=== PATIENT | female | born 1950 | race Caucasian/White ===

== ENCOUNTER 2020-03-11 20:28 | Inpatient (IN) | payer MEDICAID ==
[~2020-03-11] VITALS: Ht 154.9 cm; Wt 84.0 kg
[2020-03-11 21:16] LABS: BASOPHILS % (AUTO) 0.2 % (0.0-2.0); EOSINOPHILS % (AUTO) 0 % (1.0-6.0); HEMATOCRIT 37.3 % (36-46); HEMOGLOBIN 12.4 g/dL (12.0-16.0); LYMPHOCYTES # (AUTO) 1.5 K/uL (1.0-4.8); LYMPHOCYTES % (AUTO) 21.1 % (22.0-44.0); MEAN CORPUSCULAR HEMOGLOBIN 30.6 pg (26.0-34.0); MEAN CORPUSCULAR HGB CONC 33.4 G/dL (31.0-37.0); MEAN CORPUSCULAR VOLUME 92 fL (80-100); MONOCYTES # (AUTO) 0.6 K/uL (0.1-1.0); MONOCYTES % (AUTO) 8.5 % (2.0-9.0); NEUTROPHILS # (AUTO) 5.1 K/uL (1.8-7.7); NEUTROPHILS % (AUTO) 70.2 % (40.0-70.0); PLATELET COUNT (AUTO) 183 K/uL (150-450); RED BLOOD CELL COUNT(AUTO) 4.07 MIL/uL (4.00-5.20); RED CELL DISTRIBUTION WIDTH 13.7 % (11.5-14.5)
[2020-03-11 21:45] LABS: CREATININE 1.46 mg/dL (0.60-1.30); POTASSIUM 4.4 mmol/L (3.5-5.1)
[2020-03-11 22:14] LABS: ALBUMIN 3.2 g/dL (3.4-5.0); BILIRUBIN,TOTAL 0.3 mg/dL (0.1-1.0); TOTAL PROTEIN, SERUM 7.8 g/dL (6.4-8.2)
[2020-03-12] MEDS ORDERED: ACETAMINOPHEN 325 MG TABLET PO ONE
[2020-03-12 01:31] LABS: COVID AG,FIA SOURCE NASAL SWAB
[2020-03-12] MEDS ORDERED: DEXAMETHASONE SOD PHOS 4 MG/ML VIAL IVP ONE (03:00)
[2020-03-12 04:09] LABS: GLUCOSE,POINT OF CARE 193 MG/DL (70-110)
[2020-03-12] MEDS ORDERED: DEXTROSE 50%-WATER 25 GM/50 ML SYRINGE IVP PRN ×2 (04:15→13:00)
[2020-03-12] MEDS ORDERED: ACETAMINOPHEN 325 MG TABLET PO PRN (04:15)
[2020-03-12] MEDS ORDERED: ONDANSETRON HCL 4 MG/2 ML VIAL IVP ONE (04:15)
[2020-03-12] MEDS ORDERED: ONDANSETRON HCL 4 MG/2 ML VIAL IVP PRN (04:15)
[2020-03-12] MEDS: INSULIN LISPRO 100 UNITS/ML SQ PRN ×4 (05:18→21:06)
[2020-03-12 05:46] VITALS: BP 142/61
[2020-03-12 06:10] LABS: GLUCOMETER DEV NAME(LOC) 6N.2; GLUCOSE,POINT OF CARE 314 MG/DL (70-110)
[2020-03-12] MEDS: BENZONATATE 100 MG CAPSULE PO PRN ×3 (06:13→23:02)
[2020-03-12] MEDS ORDERED: HUM10VIA SQ ×2 (07:03)
[2020-03-12 08:00] VITALS: BP 138/68
[2020-03-12] MEDS: HEPARIN SODIUM,PORCINE 5,000 UNITS/ML VIAL SQ SCH ×3 (08:32→23:02)
[2020-03-12 10:06] LABS: BASOPHILS % (AUTO) 0.1 % (0.0-2.0); EOSINOPHILS % (AUTO) 0 % (1.0-6.0); HEMATOCRIT 36.7 % (36-46); LYMPHOCYTES # (AUTO) 0.6 K/uL (1.0-4.8); LYMPHOCYTES % (AUTO) 11.5 % (22.0-44.0); MEAN CORPUSCULAR HEMOGLOBIN 30.4 pg (26.0-34.0); MEAN CORPUSCULAR HGB CONC 32.9 G/dL (31.0-37.0); MEAN CORPUSCULAR VOLUME 93 fL (80-100); MONOCYTES # (AUTO) 0.3 K/uL (0.1-1.0); MONOCYTES % (AUTO) 5.8 % (2.0-9.0); NEUTROPHILS # (AUTO) 4.2 K/uL (1.8-7.7); NEUTROPHILS % (AUTO) 82.6 % (40.0-70.0); PLATELET COUNT (AUTO) 166 K/uL (150-450); RED BLOOD CELL COUNT(AUTO) 3.96 MIL/uL (4.00-5.20); RED CELL DISTRIBUTION WIDTH 13.6 % (11.5-14.5)
[2020-03-12 10:43] LABS: ALANINE AMINOTRANSFERASE 43 U/L (12-78); ALBUMIN 2.7 g/dL (3.4-5.0); ALKALINE PHOSPHATASE 55 U/L (46-116); ANION GAP 7 mmol/L (8-16); ASPARTATE AMINOTRANSFERASE 55 U/L (15-37); BILIRUBIN,TOTAL 0.3 mg/dL (0.1-1.0); C-REACTIVE PROTEIN QUANT 10.21 mg/dL (0.00-0.30); CALCIUM, TOTAL 7.7 mg/dL (8.8-10.5); CARBON DIOXIDE 24 mmol/L (22-29); CHLORIDE 99 mmol/L (98-107); FERRITIN 269 ng/mL (8-252); GLOMERULAR FILTR. RATE CALC 37 mL/min (>60); LACTATE DEHYDROGENASE 317 U/L (81-234); POTASSIUM 4.7 mmol/L (3.5-5.1); SODIUM SERUM 130 mmol/L (136-145); UREA NITROGEN, BLOOD 25 mg/dL (7-18)
[2020-03-12 10:51] LABS: GLUCOSE,RANDOM 411 mg/dL (70-110)
[2020-03-12 15:43] VITALS: BP 123/53
[2020-03-12 19:48] LABS: GLUCOMETER DEV NAME(LOC) 6S.1; GLUCOSE,POINT OF CARE 383 MG/DL (70-110)
[2020-03-12 19:48] LABS: GLUCOMETER DEV NAME(LOC) 6S.1; GLUCOSE,POINT OF CARE 364 MG/DL (70-110)
[2020-03-12] MEDS ORDERED: INSULIN HUMAN NPH-REGULAR 70/30 100 UNITS/ML SQ SCH (21:00)
[2020-03-12] MEDS ORDERED: INSULIN GLARGINE,HUM.REC.ANLOG 100 UNITS/ML SQ SCH ×2 (21:00)
[2020-03-12 21:20] VITALS: BP 115/59
[2020-03-12 22:06] LABS: GLUCOMETER DEV NAME(LOC) 6S.1; GLUCOSE,POINT OF CARE 335 MG/DL (70-110)
[2020-03-12 23:29] VITALS: BP 117/49
[2020-03-13 04:48] VITALS: BP 117/49
[2020-03-13] MEDS: INSULIN LISPRO 100 UNITS/ML SQ PRN ×2 (05:43→11:11)
[2020-03-13 07:40] LABS: BASOPHILS % (AUTO) 0.2 % (0.0-2.0); EOSINOPHILS % (AUTO) 0 % (1.0-6.0); HEMATOCRIT 34.3 % (36-46); HEMOGLOBIN 11.6 g/dL (12.0-16.0); LYMPHOCYTES # (AUTO) 1.1 K/uL (1.0-4.8); LYMPHOCYTES % (AUTO) 12.2 % (22.0-44.0); MEAN CORPUSCULAR HEMOGLOBIN 30.7 pg (26.0-34.0); MEAN CORPUSCULAR HGB CONC 33.7 G/dL (31.0-37.0); MEAN CORPUSCULAR VOLUME 91 fL (80-100); MONOCYTES # (AUTO) 0.6 K/uL (0.1-1.0); MONOCYTES % (AUTO) 6.3 % (2.0-9.0); NEUTROPHILS # (AUTO) 7.7 K/uL (1.8-7.7); NEUTROPHILS % (AUTO) 81.3 % (40.0-70.0); PLATELET COUNT (AUTO) 176 K/uL (150-450); RED BLOOD CELL COUNT(AUTO) 3.77 MIL/uL (4.00-5.20); RED CELL DISTRIBUTION WIDTH 13.4 % (11.5-14.5)
[2020-03-13 08:32] LABS: ALBUMIN 2.5 g/dL (3.4-5.0); BILIRUBIN,TOTAL 0.2 mg/dL (0.1-1.0); C-REACTIVE PROTEIN QUANT 7.14 mg/dL (0.00-0.30); CALCIUM, TOTAL 7.6 mg/dL (8.8-10.5); CREATININE 1.4 mg/dL (0.60-1.30); POTASSIUM 4.3 mmol/L (3.5-5.1); TOTAL PROTEIN, SERUM 6.7 g/dL (6.4-8.2)
[2020-03-13 08:40] VITALS: BP 122/54
[2020-03-13] MEDS: HEPARIN SODIUM,PORCINE 5,000 UNITS/ML VIAL SQ SCH ×2 (08:52→15:38)
[2020-03-13] MEDS ORDERED: INSULIN HUMAN NPH-REGULAR 70/30 100 UNITS/ML SQ SCH ×2 (09:00→21:00)
[2020-03-13] MEDS ORDERED: MULTIVITAMINS WITH MINERALS, THERAPEUTIC TABLET PO SCH (09:00)
[2020-03-13] MEDS: BENZONATATE 100 MG CAPSULE PO PRN ×2 (09:00→15:45)
[2020-03-13] MEDS ORDERED: ONDA-104 PO (13:49)
[2020-03-13] MEDS ORDERED: BENZ-51 PO (13:49)
[2020-03-13 15:27] VITALS: BP 156/72
[2020-03-13 16:22] LABS: GLUCOMETER DEV NAME(LOC) 6N.2; GLUCOSE,POINT OF CARE 294 MG/DL (70-110)
[2020-03-13 16:22] LABS: GLUCOMETER DEV NAME(LOC) 6S.1; GLUCOSE,POINT OF CARE 238 MG/DL (70-110)
[2020-03-14] MEDS ORDERED: INSULIN HUMAN NPH-REGULAR 70/30 100 UNITS/ML SQ SCH (06:30)
[2020-03-15 15:57] VITALS: BP 160/77
== END 2020-03-13 16:10 | disposition home or self-care (01) | DRG 137 ==
LOC: EMS 20:29 → 6N 03-12 02:50
PROVIDERS: ADMIT Internal Medicine; ATTEND Internal Medicine
DX: U07.1 COVID-19 (principal); J12.89 Other viral pneumonia; E66.01 Morbid (severe) obesity due to excess calories; Z68.35 Body mass index [BMI] 35.0-35.9, adult; E11.9 Type 2 diabetes mellitus without complications; N17.9 Acute kidney failure, unspecified; I10 Essential (primary) hypertension; D68.9 Coagulation defect, unspecified; E44.0 Moderate protein-calorie malnutrition
CPT/HCPCS: 82728; 83615; 84145; 85379; 86140; 87426; 93005; J1100; J1644; J1815; J2405; 36415-L1; 36415-TC; 71045-TC; U0003

== ENCOUNTER 2020-03-14 02:23 | Inpatient (IN) | payer MEDICAID ==
[~2020-03-14] VITALS: Ht 157.5 cm; Wt 72.9 kg
[~2020-03-14 02:23] MED LIST: BENZ-51 PO; HUM10VIA SQ; ONDA-104 PO
[2020-03-14] MEDS ORDERED: DEXAMETHASONE SOD PHOS 4 MG/ML VIAL IVP ONE ×2 (02:30→02:45)
[2020-03-14 02:47] LABS: GLUCOSE,POINT OF CARE 228 MG/DL (70-110)
[2020-03-14 03:40] LABS: BASOPHILS % (AUTO) 0.1 % (0.0-2.0); EOSINOPHILS % (AUTO) 0 % (1.0-6.0); HEMATOCRIT 36.3 % (36-46); HEMOGLOBIN 12.1 g/dL (12.0-16.0); LYMPHOCYTES # (AUTO) 0.8 K/uL (1.0-4.8); MEAN CORPUSCULAR HEMOGLOBIN 30.4 pg (26.0-34.0); MEAN CORPUSCULAR HGB CONC 33.4 G/dL (31.0-37.0); MEAN CORPUSCULAR VOLUME 91 fL (80-100); MONOCYTES # (AUTO) 0.7 K/uL (0.1-1.0); MONOCYTES % (AUTO) 5.3 % (2.0-9.0); NEUTROPHILS # (AUTO) 11.3 K/uL (1.8-7.7); PLATELET COUNT (AUTO) 236 K/uL (150-450); RED BLOOD CELL COUNT(AUTO) 3.98 MIL/uL (4.00-5.20); RED CELL DISTRIBUTION WIDTH 13.6 % (11.5-14.5)
[2020-03-14 03:46] LABS: CALCIUM, TOTAL 8.3 mg/dL (8.8-10.5); CREATININE 1.33 mg/dL (0.60-1.30); POTASSIUM 4.6 mmol/L (3.5-5.1)
[2020-03-14 03:47] LABS: D-DIMER 0.37 mg/L FEU (0.00-0.50); INR 0.9 (0.9-1.1)
[2020-03-14 03:55] LABS: LACTIC ACID 1.2 mmol/L (0.4-2.0)
[2020-03-14 04:05] LABS: NEUTROPHILS % (AUTO) 88.6 % (40.0-70.0)
[2020-03-14 04:12] LABS: ALBUMIN 2.7 g/dL (3.4-5.0); BILIRUBIN,TOTAL 0.3 mg/dL (0.1-1.0); C-REACTIVE PROTEIN QUANT 10.41 mg/dL (0.00-0.30); MAGNESIUM 2.2 mg/dL (1.80-2.40); TOTAL PROTEIN, SERUM 7.4 g/dL (6.4-8.2)
[2020-03-14 04:33] LABS: ERYTHROCYTE SEDIMENTATION RATE 68 MM/HR (0-20)
[2020-03-14 05:20] LABS: APPEARANCE,URINE CLEAR (CLEAR); BILIRUBIN,URINE NEGATIVE (NEGATIVE); GLUCOSE, URINE (UA) 100 mg/dL (NEGATIVE); KETONES,URINE NEGATIVE (NEGATIVE); LEUKOCYTE ESTERASE ,URINE NEGATIVE (NEGATIVE); NITRATE,URINE NEGATIVE (NEGATIVE); OCCULT BLOOD,URINE SMALL (NEGATIVE); PROTEIN,URINE SEE CONFIRM (NEGATIVE)
[2020-03-14 05:32] LABS: SULFOSALICYLIC ACID,URINE 2+ (Negative)
[2020-03-14 05:33] LABS: BACTERIA,URINE Rare /HPF (None Seen); SQUAMOUS EPITHELIAL CELL,UR Rare /LPF (None Seen); WBC,URINE 0-2 /HPF (0-5)
[2020-03-14] MEDS ORDERED: 0.9% SODIUM CHLORIDE 10 ML SYRINGE IVP PRN (06:00)
[2020-03-14] MEDS ORDERED: ONDANSETRON HCL 4 MG/2 ML VIAL IVP PRN (06:00)
[2020-03-14] MEDS ORDERED: ACETAMINOPHEN 325 MG TABLET PO PRN (06:00)
[2020-03-14 14:43] VITALS: BP 122/64
[2020-03-14] MEDS ORDERED: REMDESIVIR 200 MG in SODIUM CHLORIDE 0.9% 250 ML IV ONE (20:00)
[2020-03-14] MEDS ORDERED: SODIUM CHLORIDE 0.9% 500 ML IV ONE (20:10)
[2020-03-14] MEDS: BENZONATATE 100 MG CAPSULE PO SCH (20:19)
[2020-03-14] MEDS: AZITHROMYCIN 500 MG/NS 250 ML IV SCH (20:20)
[2020-03-14] MEDS ORDERED: INSULIN HUMAN NPH-REGULAR 70/30 100 UNITS/ML SQ SCH (21:00)
[2020-03-14 21:56] VITALS: BP 157/76
[2020-03-14] MEDS: INSULIN LISPRO 100 UNITS/ML SQ PRN (22:38)
[2020-03-14] MEDS: CefTRIAXone 1 GM/DEXTROSE 50 ML IV SCH (22:38)
[2020-03-15 00:10] VITALS: BP 148/70
[2020-03-15 00:33] LABS: GLUCOMETER DEV NAME(LOC) 5N.3; GLUCOSE,POINT OF CARE 349 MG/DL (70-110)
[2020-03-15 00:33] LABS: GLUCOMETER DEV NAME(LOC) 5N.3; GLUCOSE,POINT OF CARE 436 MG/DL (70-110)
[2020-03-15] MEDS: BENZONATATE 100 MG CAPSULE PO SCH ×3 (01:45→17:41)
[2020-03-15 04:20] VITALS: BP 143/68
[2020-03-15] MEDS: INSULIN LISPRO 100 UNITS/ML SQ PRN ×4 (06:07→20:25)
[2020-03-15 07:11] LABS: GLUCOMETER DEV NAME(LOC) 5S.2B; GLUCOSE,POINT OF CARE 285 MG/DL (70-110)
[2020-03-15] MEDS: DEXAMETHASONE 2 MG TABLET PO SCH (08:07)
[2020-03-15] MEDS: INSULIN HUMAN NPH-REGULAR 70/30 100 UNITS/ML SQ SCH ×2 (08:09→20:26)
[2020-03-15 12:18] VITALS: BP 166/71
[2020-03-15] MEDS: AZITHROMYCIN 500 MG/NS 250 ML IV SCH (13:38)
[2020-03-15 14:29] LABS: BASOPHILS % (AUTO) 0.1 % (0.0-2.0); EOSINOPHILS % (AUTO) 0 % (1.0-6.0); HEMATOCRIT 36.2 % (36-46); HEMOGLOBIN 11.8 g/dL (12.0-16.0); LYMPHOCYTES # (AUTO) 0.7 K/uL (1.0-4.8); MEAN CORPUSCULAR HEMOGLOBIN 29.9 pg (26.0-34.0); MEAN CORPUSCULAR HGB CONC 32.7 G/dL (31.0-37.0); MEAN CORPUSCULAR VOLUME 91 fL (80-100); MONOCYTES # (AUTO) 0.4 K/uL (0.1-1.0); MONOCYTES % (AUTO) 3.2 % (2.0-9.0); NEUTROPHILS # (AUTO) 12.4 K/uL (1.8-7.7); PLATELET COUNT (AUTO) 306 K/uL (150-450); RED BLOOD CELL COUNT(AUTO) 3.96 MIL/uL (4.00-5.20); RED CELL DISTRIBUTION WIDTH 13.9 % (11.5-14.5)
[2020-03-15 14:30] LABS: NEUTROPHILS % (AUTO) 91.7 % (40.0-70.0)
[2020-03-15 14:46] LABS: CALCIUM, TOTAL 8.3 mg/dL (8.8-10.5); CREATININE 1.12 mg/dL (0.60-1.30); POTASSIUM 4.8 mmol/L (3.5-5.1)
[2020-03-15 14:52] LABS: ALBUMIN 2.3 g/dL (3.4-5.0); BILIRUBIN,TOTAL 0.2 mg/dL (0.1-1.0); TOTAL PROTEIN, SERUM 7.1 g/dL (6.4-8.2)
[2020-03-15 16:20] VITALS: BP 147/76
[2020-03-15 17:17] LABS: GLUCOMETER DEV NAME(LOC) 5S.2B; GLUCOSE,POINT OF CARE 233 MG/DL (70-110)
[2020-03-15 18:30] VITALS: BP 164/79
[2020-03-15] MEDS: FAMOTIDINE 20 MG TABLET PO SCH (19:57)
[2020-03-15] MEDS: ZINC SULFATE 220 MG CAPSULE PO SCH (19:57)
[2020-03-15] MEDS: CHOLECALCIFEROL (VIT D3) 1,000 UNITS [25 MCG] TABLET PO SCH (19:57)
[2020-03-15] MEDS: ASCORBIC ACID 500 MG TABLET PO SCH (19:57)
[2020-03-15] MEDS: REMDESIVIR 100 MG in SODIUM CHLORIDE 0.9% 250 ML IV SCH (19:59)
[2020-03-15 21:08] VITALS: BP 145/70
[2020-03-15] MEDS: CefTRIAXone 1 GM/DEXTROSE 50 ML IV SCH (22:04)
[2020-03-16 00:49] VITALS: BP 160/70
[2020-03-16] MEDS: BENZONATATE 100 MG CAPSULE PO SCH ×3 (03:02→17:59)
[2020-03-16] MEDS: ZOLPIDEM TARTRATE 5 MG TABLET PO PRN (03:02)
[2020-03-16 04:10] LABS: GLUCOMETER DEV NAME(LOC) 5S.2B; GLUCOSE,POINT OF CARE 361 MG/DL (70-110)
[2020-03-16 04:10] LABS: GLUCOMETER DEV NAME(LOC) 5S.2B; GLUCOSE,POINT OF CARE 265 MG/DL (70-110)
[2020-03-16 04:39] VITALS: BP 135/45
[2020-03-16] MEDS: INSULIN LISPRO 100 UNITS/ML SQ PRN ×4 (06:03→20:13)
[2020-03-16 06:27] LABS: BASOPHILS % (AUTO) 0.2 % (0.0-2.0); EOSINOPHILS % (AUTO) 0 % (1.0-6.0); HEMATOCRIT 38.4 % (36-46); HEMOGLOBIN 12.5 g/dL (12.0-16.0); LYMPHOCYTES # (AUTO) 1.8 K/uL (1.0-4.8); LYMPHOCYTES % (AUTO) 10.5 % (22.0-44.0); MEAN CORPUSCULAR HGB CONC 32.5 G/dL (31.0-37.0); MEAN CORPUSCULAR VOLUME 92 fL (80-100); MONOCYTES # (AUTO) 1.2 K/uL (0.1-1.0); MONOCYTES % (AUTO) 7.1 % (2.0-9.0); NEUTROPHILS # (AUTO) 13.9 K/uL (1.8-7.7); NEUTROPHILS % (AUTO) 82.2 % (40.0-70.0); PLATELET COUNT (AUTO) 375 K/uL (150-450); RED BLOOD CELL COUNT(AUTO) 4.16 MIL/uL (4.00-5.20); RED CELL DISTRIBUTION WIDTH 13.9 % (11.5-14.5)
[2020-03-16 07:06] LABS: ALANINE AMINOTRANSFERASE 60 U/L (12-78); ALBUMIN 2.4 g/dL (3.4-5.0); ALKALINE PHOSPHATASE 64 U/L (46-116); ANION GAP 5 mmol/L (8-16); ASPARTATE AMINOTRANSFERASE 48 U/L (15-37); BILIRUBIN,TOTAL 0.3 mg/dL (0.1-1.0); C-REACTIVE PROTEIN QUANT 12.34 mg/dL (0.00-0.30); CALCIUM, TOTAL 8.6 mg/dL (8.8-10.5); CARBON DIOXIDE 25 mmol/L (22-29); CHLORIDE 106 mmol/L (98-107); CREATININE 1.17 mg/dL (0.60-1.30); FERRITIN 447 ng/mL (8-252); GLOMERULAR FILTR. RATE CALC 46 mL/min (>60); GLUCOSE,RANDOM 214 mg/dL (70-110); POTASSIUM 4.4 mmol/L (3.5-5.1); SODIUM SERUM 136 mmol/L (136-145); TOTAL PROTEIN, SERUM 7.5 g/dL (6.4-8.2); UREA NITROGEN, BLOOD 29 mg/dL (7-18)
[2020-03-16 07:29] VITALS: BP 156/79
[2020-03-16] MEDS: CHOLECALCIFEROL (VIT D3) 1,000 UNITS [25 MCG] TABLET PO SCH (09:00)
[2020-03-16] MEDS: ZINC SULFATE 220 MG CAPSULE PO SCH ×2 (09:10→20:00)
[2020-03-16] MEDS: FAMOTIDINE 20 MG TABLET PO SCH ×2 (09:10→20:00)
[2020-03-16] MEDS: INSULIN HUMAN NPH-REGULAR 70/30 100 UNITS/ML SQ SCH ×2 (09:10→20:12)
[2020-03-16] MEDS: ASCORBIC ACID 500 MG TABLET PO SCH ×2 (09:11→20:00)
[2020-03-16] MEDS: DEXAMETHASONE 2 MG TABLET PO SCH (09:11)
[2020-03-16 10:50] VITALS: BP 145/82
[2020-03-16] MEDS: APIXABAN 5 MG TABLET PO SCH ×2 (11:39→20:00)
[2020-03-16 12:42] LABS: GLUCOMETER DEV NAME(LOC) 5N.3; GLUCOSE,POINT OF CARE 274 MG/DL (70-110)
[2020-03-16 14:51] VITALS: BP 142/78
[2020-03-16 15:52] LABS: GLUCOMETER DEV NAME(LOC) 5S.2B; GLUCOSE,POINT OF CARE 185 MG/DL (70-110)
[2020-03-16] MEDS: MAGNESIUM HYDROXIDE SUSPENSION 30 ML UDCUP PO PRN (18:00)
[2020-03-16] MEDS: AZITHROMYCIN 500 MG/NS 250 ML IV SCH (18:41)
[2020-03-16 19:28] LABS: GLUCOMETER DEV NAME(LOC) 5S.2B; GLUCOSE,POINT OF CARE 223 MG/DL (70-110)
[2020-03-16] MEDS ORDERED: SODIUM CHLORIDE 0.9% 1,000 ML ONE (19:48)
[2020-03-16] MEDS: REMDESIVIR 100 MG in SODIUM CHLORIDE 0.9% 250 ML IV SCH (20:03)
[2020-03-16] MEDS: CefTRIAXone 1 GM/DEXTROSE 50 ML IV SCH (20:04)
[2020-03-16 21:23] VITALS: BP 143/73
[2020-03-17] VITALS (13 sets, daily range): BP systolic 131–170; BP diastolic 44–95
[2020-03-17] MEDS: BENZONATATE 100 MG CAPSULE PO SCH ×3 (01:56→17:42)
[2020-03-17] MEDS: ZOLPIDEM TARTRATE 5 MG TABLET PO PRN ×2 (01:56→23:29)
[2020-03-17] MEDS: INSULIN LISPRO 100 UNITS/ML SQ PRN ×2 (05:59→12:03)
[2020-03-17 06:52] LABS: BASOPHILS % (AUTO) 0.2 % (0.0-2.0); EOSINOPHILS % (AUTO) 0 % (1.0-6.0); HEMATOCRIT 37.8 % (36-46); HEMOGLOBIN 12.4 g/dL (12.0-16.0); LYMPHOCYTES % (AUTO) 6.5 % (22.0-44.0); MEAN CORPUSCULAR HGB CONC 32.7 G/dL (31.0-37.0); MEAN CORPUSCULAR VOLUME 92 fL (80-100); MONOCYTES # (AUTO) 1.3 K/uL (0.1-1.0); MONOCYTES % (AUTO) 8.6 % (2.0-9.0); NEUTROPHILS # (AUTO) 12.4 K/uL (1.8-7.7); NEUTROPHILS % (AUTO) 84.7 % (40.0-70.0); PLATELET COUNT (AUTO) 414 K/uL (150-450); RED BLOOD CELL COUNT(AUTO) 4.12 MIL/uL (4.00-5.20); RED CELL DISTRIBUTION WIDTH 13.9 % (11.5-14.5)
[2020-03-17 07:30] LABS: ALBUMIN 2.5 g/dL (3.4-5.0); BILIRUBIN,TOTAL 0.4 mg/dL (0.1-1.0); CALCIUM, TOTAL 8.2 mg/dL (8.8-10.5); CREATININE 1.02 mg/dL (0.60-1.30); POTASSIUM 4.7 mmol/L (3.5-5.1); TOTAL PROTEIN, SERUM 7.3 g/dL (6.4-8.2)
[2020-03-17 07:39] LABS: C-REACTIVE PROTEIN QUANT 5.7 mg/dL (0.00-0.30)
[2020-03-17 08:01] LABS: GLUCOMETER DEV NAME(LOC) 5N.3; GLUCOSE,POINT OF CARE 200 MG/DL (70-110)
[2020-03-17 08:01] LABS: GLUCOMETER DEV NAME(LOC) 5N.3; GLUCOSE,POINT OF CARE 210 MG/DL (70-110)
[2020-03-17] MEDS: DEXAMETHASONE 2 MG TABLET PO SCH (08:19)
[2020-03-17] MEDS: CHOLECALCIFEROL (VIT D3) 1,000 UNITS [25 MCG] TABLET PO SCH (08:19)
[2020-03-17] MEDS: APIXABAN 5 MG TABLET PO SCH ×2 (08:19→20:24)
[2020-03-17] MEDS: ASCORBIC ACID 500 MG TABLET PO SCH ×2 (08:20→20:24)
[2020-03-17] MEDS: ZINC SULFATE 220 MG CAPSULE PO SCH ×2 (08:22→20:24)
[2020-03-17] MEDS: FAMOTIDINE 20 MG TABLET PO SCH ×2 (08:22→20:24)
[2020-03-17] MEDS: INSULIN HUMAN NPH-REGULAR 70/30 100 UNITS/ML SQ SCH ×2 (08:53→20:39)
[2020-03-17 11:41] LABS: GLUCOMETER DEV NAME(LOC) 5S.2B; GLUCOSE,POINT OF CARE 151 MG/DL (70-110)
[2020-03-17] MEDS: AZITHROMYCIN 500 MG/NS 250 ML IV SCH (17:44)
[2020-03-17] MEDS: CefTRIAXone 1 GM/DEXTROSE 50 ML IV SCH (19:19)
[2020-03-17] MEDS: REMDESIVIR 100 MG in SODIUM CHLORIDE 0.9% 250 ML IV SCH (20:24)
[2020-03-17] MEDS: MAGNESIUM HYDROXIDE SUSPENSION 30 ML UDCUP PO PRN (20:32)
[2020-03-17] MEDS: ACETAMINOPHEN 650 MG/20.3 ML SOLUTION UDCUP PO PRN (23:29)
[2020-03-18] VITALS: BP 140/64
[2020-03-18] MEDS: BENZONATATE 100 MG CAPSULE PO SCH ×3 (02:40→17:45)
[2020-03-18 03:30] VITALS: BP 118/64
[2020-03-18 08:01] VITALS: BP 147/64
[2020-03-18] MEDS: CHOLECALCIFEROL (VIT D3) 1,000 UNITS [25 MCG] TABLET PO SCH (08:09)
[2020-03-18] MEDS: FAMOTIDINE 20 MG TABLET PO SCH ×2 (08:09→20:22)
[2020-03-18] MEDS: APIXABAN 5 MG TABLET PO SCH ×2 (08:09→20:22)
[2020-03-18] MEDS: DEXAMETHASONE 2 MG TABLET PO SCH (08:09)
[2020-03-18] MEDS: ASCORBIC ACID 500 MG TABLET PO SCH ×2 (08:09→20:22)
[2020-03-18] MEDS: ZINC SULFATE 220 MG CAPSULE PO SCH ×2 (08:09→20:22)
[2020-03-18] MEDS: INSULIN HUMAN NPH-REGULAR 70/30 100 UNITS/ML SQ SCH ×2 (08:11→20:23)
[2020-03-18 10:26] LABS: BASOPHILS % (AUTO) 0.5 % (0.0-2.0); EOSINOPHILS % (AUTO) 0.1 % (1.0-6.0); HEMATOCRIT 37.8 % (36-46); HEMOGLOBIN 12.4 g/dL (12.0-16.0); LYMPHOCYTES # (AUTO) 1.6 K/uL (1.0-4.8); LYMPHOCYTES % (AUTO) 11.3 % (22.0-44.0); MEAN CORPUSCULAR HGB CONC 32.9 G/dL (31.0-37.0); MEAN CORPUSCULAR VOLUME 91 fL (80-100); MONOCYTES # (AUTO) 0.8 K/uL (0.1-1.0); MONOCYTES % (AUTO) 5.2 % (2.0-9.0); NEUTROPHILS # (AUTO) 12.1 K/uL (1.8-7.7); NEUTROPHILS % (AUTO) 82.9 % (40.0-70.0); PLATELET COUNT (AUTO) 481 K/uL (150-450); RED BLOOD CELL COUNT(AUTO) 4.14 MIL/uL (4.00-5.20); RED CELL DISTRIBUTION WIDTH 13.4 % (11.5-14.5)
[2020-03-18 10:43] LABS: ALBUMIN 2.4 g/dL (3.4-5.0); BILIRUBIN,TOTAL 0.6 mg/dL (0.1-1.0); CALCIUM, TOTAL 8.6 mg/dL (8.8-10.5); CREATININE 1.14 mg/dL (0.60-1.30); POTASSIUM 3.9 mmol/L (3.5-5.1); TOTAL PROTEIN, SERUM 7.1 g/dL (6.4-8.2)
[2020-03-18 11:43] LABS: GLUCOMETER DEV NAME(LOC) 5S.2B; GLUCOSE,POINT OF CARE 97 MG/DL (70-110)
[2020-03-18 12:04] VITALS: BP 139/70
[2020-03-18] MEDS: INSULIN LISPRO 100 UNITS/ML SQ PRN ×2 (12:14→17:21)
[2020-03-18] MEDS ORDERED: MAGNESIUM CITRATE 300 ML ORAL SOLUTION PO ONE (15:00)
[2020-03-18 15:21] VITALS: BP 121/66
[2020-03-18] MEDS ORDERED: ONDANSETRON HCL 4 MG/2 ML VIAL ONE (18:23)
[2020-03-18] MEDS: AZITHROMYCIN 500 MG/NS 250 ML IV SCH (18:26)
[2020-03-18] MEDS: ONDANSETRON HCL 4 MG/2 ML VIAL IVP PRN (18:27)
[2020-03-18 20:18] VITALS: BP 127/60
[2020-03-18] MEDS: CefTRIAXone 1 GM/DEXTROSE 50 ML IV SCH (20:22)
[2020-03-18] MEDS: REMDESIVIR 100 MG in SODIUM CHLORIDE 0.9% 250 ML IV SCH (21:21)
[2020-03-18 22:10] LABS: GLUCOMETER DEV NAME(LOC) 5N.3; GLUCOSE,POINT OF CARE 122 MG/DL (70-110)
[2020-03-18 22:10] LABS: GLUCOMETER DEV NAME(LOC) 5N.3; GLUCOSE,POINT OF CARE 182 MG/DL (70-110)
[2020-03-18 22:10] LABS: GLUCOMETER DEV NAME(LOC) 5N.3; GLUCOSE,POINT OF CARE 106 MG/DL (70-110)
[2020-03-18 22:10] LABS: GLUCOMETER DEV NAME(LOC) 5N.3; GLUCOSE,POINT OF CARE 151 MG/DL (70-110)
[2020-03-18 22:10] LABS: GLUCOMETER DEV NAME(LOC) 5N.3; GLUCOSE,POINT OF CARE 117 MG/DL (70-110)
[2020-03-19] VITALS (13 sets, daily range): BP systolic 109–146; BP diastolic 50–81
[2020-03-19] MEDS ORDERED: SODIUM CHLORIDE 0.9% 500 ML IV ONE (01:02)
[2020-03-19] MEDS: BENZONATATE 100 MG CAPSULE PO SCH ×3 (02:21→17:00)
[2020-03-19] MEDS: INSULIN LISPRO 100 UNITS/ML SQ PRN ×4 (06:09→22:45)
[2020-03-19 06:38] LABS: BASOPHILS % (AUTO) 0.3 % (0.0-2.0); EOSINOPHILS % (AUTO) 0 % (1.0-6.0); HEMATOCRIT 35.1 % (36-46); HEMOGLOBIN 11.6 g/dL (12.0-16.0); LYMPHOCYTES # (AUTO) 0.8 K/uL (1.0-4.8); LYMPHOCYTES % (AUTO) 5.5 % (22.0-44.0); MEAN CORPUSCULAR HEMOGLOBIN 30.3 pg (26.0-34.0); MEAN CORPUSCULAR HGB CONC 33.1 G/dL (31.0-37.0); MEAN CORPUSCULAR VOLUME 91 fL (80-100); MONOCYTES # (AUTO) 0.8 K/uL (0.1-1.0); MONOCYTES % (AUTO) 5.2 % (2.0-9.0); NEUTROPHILS # (AUTO) 13.3 K/uL (1.8-7.7); PLATELET COUNT (AUTO) 432 K/uL (150-450); RED BLOOD CELL COUNT(AUTO) 3.85 MIL/uL (4.00-5.20); RED CELL DISTRIBUTION WIDTH 13.7 % (11.5-14.5)
[2020-03-19 07:24] LABS: ALBUMIN 2.4 g/dL (3.4-5.0); BILIRUBIN,TOTAL 0.4 mg/dL (0.1-1.0); CALCIUM, TOTAL 8.3 mg/dL (8.8-10.5); CREATININE 1.12 mg/dL (0.60-1.30); POTASSIUM 4.5 mmol/L (3.5-5.1)
[2020-03-19] MEDS: CHOLECALCIFEROL (VIT D3) 1,000 UNITS [25 MCG] TABLET PO SCH (08:29)
[2020-03-19] MEDS: ASCORBIC ACID 500 MG TABLET PO SCH ×2 (08:29→22:26)
[2020-03-19] MEDS: FAMOTIDINE 20 MG TABLET PO SCH ×2 (08:30→22:26)
[2020-03-19] MEDS: ZINC SULFATE 220 MG CAPSULE PO SCH ×2 (08:30→22:26)
[2020-03-19] MEDS: APIXABAN 5 MG TABLET PO SCH ×2 (08:30→22:26)
[2020-03-19] MEDS: DEXAMETHASONE 2 MG TABLET PO SCH (08:30)
[2020-03-19] MEDS: INSULIN HUMAN NPH-REGULAR 70/30 100 UNITS/ML SQ SCH ×2 (08:34→22:47)
[2020-03-19 12:10] LABS: GLUCOMETER DEV NAME(LOC) 5S.2B; GLUCOSE,POINT OF CARE 154 MG/DL (70-110)
[2020-03-19 12:10] LABS: GLUCOMETER DEV NAME(LOC) 5S.2B; GLUCOSE,POINT OF CARE 164 MG/DL (70-110)
[2020-03-19] MEDS: AZITHROMYCIN 500 MG/NS 250 ML IV SCH (17:05)
[2020-03-19 18:18] LABS: C-REACTIVE PROTEIN QUANT 11.88 mg/dL (0.00-0.30)
[2020-03-19] MEDS: CefTRIAXone 1 GM/DEXTROSE 50 ML IV SCH ×2 (18:48→18:52)
[2020-03-19] MEDS: ACETAMINOPHEN 650 MG/20.3 ML SOLUTION UDCUP PO PRN (22:59)
[2020-03-19 23:18] LABS: GLUCOMETER DEV NAME(LOC) 5S.2B; GLUCOSE,POINT OF CARE 180 MG/DL (70-110)
[2020-03-20 01:02] VITALS: BP 145/76
[2020-03-20] MEDS: BENZONATATE 100 MG CAPSULE PO SCH ×3 (01:42→17:27)
[2020-03-20] MEDS: ZOLPIDEM TARTRATE 5 MG TABLET PO PRN (01:45)
[2020-03-20 05:05] LABS: GLUCOMETER DEV NAME(LOC) 5N.3; GLUCOSE,POINT OF CARE 153 MG/DL (70-110)
[2020-03-20 05:25] VITALS: BP 137/62
[2020-03-20] MEDS: INSULIN LISPRO 100 UNITS/ML SQ PRN (05:43)
[2020-03-20 06:49] LABS: BASOPHILS % (AUTO) 0.3 % (0.0-2.0); EOSINOPHILS % (AUTO) 0 % (1.0-6.0); HEMATOCRIT 35.4 % (36-46); HEMOGLOBIN 11.7 g/dL (12.0-16.0); LYMPHOCYTES # (AUTO) 0.8 K/uL (1.0-4.8); LYMPHOCYTES % (AUTO) 4.6 % (22.0-44.0); MEAN CORPUSCULAR HEMOGLOBIN 29.9 pg (26.0-34.0); MEAN CORPUSCULAR VOLUME 91 fL (80-100); MONOCYTES # (AUTO) 0.9 K/uL (0.1-1.0); MONOCYTES % (AUTO) 5.6 % (2.0-9.0); NEUTROPHILS # (AUTO) 15.1 K/uL (1.8-7.7); PLATELET COUNT (AUTO) 499 K/uL (150-450); RED BLOOD CELL COUNT(AUTO) 3.89 MIL/uL (4.00-5.20); RED CELL DISTRIBUTION WIDTH 13.4 % (11.5-14.5)
[2020-03-20 07:06] LABS: ALBUMIN 2.2 g/dL (3.4-5.0); BILIRUBIN,TOTAL 0.4 mg/dL (0.1-1.0); CALCIUM, TOTAL 7.9 mg/dL (8.8-10.5); CREATININE 1.19 mg/dL (0.60-1.30); POTASSIUM 4.4 mmol/L (3.5-5.1); TOTAL PROTEIN, SERUM 6.6 g/dL (6.4-8.2)
[2020-03-20 07:12] LABS: NEUTROPHILS % (AUTO) 89.5 % (40.0-70.0)
[2020-03-20 07:30] LABS: C-REACTIVE PROTEIN QUANT 6.5 mg/dL (0.00-0.30)
[2020-03-20 07:31] VITALS: BP 136/59
[2020-03-20] MEDS: ASCORBIC ACID 500 MG TABLET PO SCH ×2 (08:58→21:40)
[2020-03-20] MEDS: DEXAMETHASONE 2 MG TABLET PO SCH (08:58)
[2020-03-20] MEDS: ZINC SULFATE 220 MG CAPSULE PO SCH ×2 (08:58→21:40)
[2020-03-20] MEDS: APIXABAN 5 MG TABLET PO SCH ×2 (08:58→21:40)
[2020-03-20] MEDS: FAMOTIDINE 20 MG TABLET PO SCH ×2 (08:58→21:40)
[2020-03-20] MEDS: CHOLECALCIFEROL (VIT D3) 1,000 UNITS [25 MCG] TABLET PO SCH (08:59)
[2020-03-20] MEDS: INSULIN HUMAN NPH-REGULAR 70/30 100 UNITS/ML SQ SCH ×2 (09:04→22:02)
[2020-03-20 10:47] VITALS: BP 132/66
[2020-03-20] MEDS: ACETAMINOPHEN 325 MG TABLET PO PRN (14:14)
[2020-03-20 15:23] VITALS: BP 138/62
[2020-03-20] MEDS: AZITHROMYCIN 500 MG/NS 250 ML IV SCH (17:27)
[2020-03-20 17:54] LABS: GLUCOMETER DEV NAME(LOC) 5N.3; GLUCOSE,POINT OF CARE 143 MG/DL (70-110)
[2020-03-20 17:54] LABS: GLUCOMETER DEV NAME(LOC) 5N.3; GLUCOSE,POINT OF CARE 114 MG/DL (70-110)
[2020-03-20 17:54] LABS: GLUCOMETER DEV NAME(LOC) 5N.3; GLUCOSE,POINT OF CARE 105 MG/DL (70-110)
[2020-03-20] MEDS: CefTRIAXone 1 GM/DEXTROSE 50 ML IV SCH (19:51)
[2020-03-20 20:00] VITALS: BP 129/67
[2020-03-21 00:01] VITALS: BP 134/67
[2020-03-21 00:26] LABS: GLUCOMETER DEV NAME(LOC) 5N.3; GLUCOSE,POINT OF CARE 162 MG/DL (70-110)
[2020-03-21] MEDS: ZOLPIDEM TARTRATE 5 MG TABLET PO PRN ×2 (02:34→22:47)
[2020-03-21] MEDS: BENZONATATE 100 MG CAPSULE PO SCH ×3 (02:34→16:58)
[2020-03-21 06:18] VITALS: BP 139/86
[2020-03-21] MEDS: INSULIN LISPRO 100 UNITS/ML SQ PRN ×2 (06:21→11:49)
[2020-03-21 06:34] LABS: BASOPHILS % (AUTO) 0.2 % (0.0-2.0); EOSINOPHILS % (AUTO) 0 % (1.0-6.0); HEMATOCRIT 35.8 % (36-46); HEMOGLOBIN 11.8 g/dL (12.0-16.0); LYMPHOCYTES # (AUTO) 0.8 K/uL (1.0-4.8); LYMPHOCYTES % (AUTO) 4.1 % (22.0-44.0); MEAN CORPUSCULAR HGB CONC 32.9 G/dL (31.0-37.0); MEAN CORPUSCULAR VOLUME 91 fL (80-100); MONOCYTES # (AUTO) 1.1 K/uL (0.1-1.0); MONOCYTES % (AUTO) 6.1 % (2.0-9.0); NEUTROPHILS # (AUTO) 16.7 K/uL (1.8-7.7); PLATELET COUNT (AUTO) 513 K/uL (150-450); RED BLOOD CELL COUNT(AUTO) 3.92 MIL/uL (4.00-5.20); RED CELL DISTRIBUTION WIDTH 13.6 % (11.5-14.5)
[2020-03-21 06:55] LABS: GLUCOMETER DEV NAME(LOC) 5S.2B; GLUCOSE,POINT OF CARE 182 MG/DL (70-110)
[2020-03-21 07:05] VITALS: BP 135/65
[2020-03-21 07:10] LABS: BILIRUBIN,TOTAL 0.4 mg/dL (0.1-1.0); CALCIUM, TOTAL 7.6 mg/dL (8.8-10.5); CREATININE 1.23 mg/dL (0.60-1.30); POTASSIUM 4.9 mmol/L (3.5-5.1); TOTAL PROTEIN, SERUM 6.2 g/dL (6.4-8.2)
[2020-03-21 07:34] LABS: NEUTROPHILS % (AUTO) 89.6 % (40.0-70.0)
[2020-03-21] MEDS: ASCORBIC ACID 500 MG TABLET PO SCH ×2 (09:17→21:44)
[2020-03-21] MEDS: CHOLECALCIFEROL (VIT D3) 1,000 UNITS [25 MCG] TABLET PO SCH (09:17)
[2020-03-21] MEDS: APIXABAN 5 MG TABLET PO SCH ×2 (09:18→21:44)
[2020-03-21] MEDS: ZINC SULFATE 220 MG CAPSULE PO SCH ×2 (09:18→21:44)
[2020-03-21] MEDS: DEXAMETHASONE 2 MG TABLET PO SCH (09:18)
[2020-03-21] MEDS: FAMOTIDINE 20 MG TABLET PO SCH ×2 (09:18→21:44)
[2020-03-21] MEDS: INSULIN HUMAN NPH-REGULAR 70/30 100 UNITS/ML SQ SCH ×2 (09:20→21:46)
[2020-03-21 11:27] VITALS: BP 128/50
[2020-03-21 12:56] LABS: C-REACTIVE PROTEIN QUANT 4.28 mg/dL (0.00-0.30)
[2020-03-21 15:23] VITALS: BP 138/56
[2020-03-21] MEDS: AZITHROMYCIN 500 MG/NS 250 ML IV SCH (16:59)
[2020-03-21] MEDS: CefTRIAXone 1 GM/DEXTROSE 50 ML IV SCH (18:33)
[2020-03-21 18:48] LABS: GLUCOMETER DEV NAME(LOC) 5S.2B; GLUCOSE,POINT OF CARE 147 MG/DL (70-110)
[2020-03-21 18:49] LABS: GLUCOMETER DEV NAME(LOC) 5N.3; GLUCOSE,POINT OF CARE 179 MG/DL (70-110)
[2020-03-21 21:42] VITALS: BP 125/98
[2020-03-21 22:33] LABS: GLUCOMETER DEV NAME(LOC) 5N.3; GLUCOSE,POINT OF CARE 118 MG/DL (70-110)
[2020-03-21 23:18] LABS: APPEARANCE,URINE CLOUDY (CLEAR); BILIRUBIN,URINE NEGATIVE (NEGATIVE); GLUCOSE, URINE (UA) NEGATIVE (NEGATIVE); KETONES,URINE NEGATIVE (NEGATIVE); LEUKOCYTE ESTERASE ,URINE NEGATIVE (NEGATIVE); NITRATE,URINE NEGATIVE (NEGATIVE); OCCULT BLOOD,URINE NEGATIVE (NEGATIVE); PROTEIN,URINE SEE CONFIRM (NEGATIVE); UROBILINOGEN,URINE 0.2 mg/dL (<=1.0)
[2020-03-21 23:28] LABS: BACTERIA,URINE Rare /HPF (None Seen); RBC,URINE 0-2 /HPF (0-2); SQUAMOUS EPITHELIAL CELL,UR Rare /LPF (None Seen); SULFOSALICYLIC ACID,URINE 3+ (Negative); WBC,URINE 0-2 /HPF (0-5)
[2020-03-22 00:33] VITALS: BP 138/67
[2020-03-22] MEDS: BENZONATATE 100 MG CAPSULE PO SCH ×3 (01:45→17:22)
[2020-03-22 05:00] VITALS: BP 108/59
[2020-03-22 06:34] LABS: BASOPHILS % (AUTO) 0.2 % (0.0-2.0); EOSINOPHILS % (AUTO) 0 % (1.0-6.0); HEMATOCRIT 36.1 % (36-46); LYMPHOCYTES # (AUTO) 0.7 K/uL (1.0-4.8); LYMPHOCYTES % (AUTO) 4.1 % (22.0-44.0); MEAN CORPUSCULAR HEMOGLOBIN 30.3 pg (26.0-34.0); MEAN CORPUSCULAR HGB CONC 33.2 G/dL (31.0-37.0); MEAN CORPUSCULAR VOLUME 91 fL (80-100); MONOCYTES # (AUTO) 1.1 K/uL (0.1-1.0); NEUTROPHILS # (AUTO) 15.7 K/uL (1.8-7.7); PLATELET COUNT (AUTO) 488 K/uL (150-450); RED BLOOD CELL COUNT(AUTO) 3.95 MIL/uL (4.00-5.20); RED CELL DISTRIBUTION WIDTH 13.6 % (11.5-14.5)
[2020-03-22 07:15] LABS: NEUTROPHILS % (AUTO) 89.7 % (40.0-70.0)
[2020-03-22 07:24] VITALS: BP 124/67
[2020-03-22 08:02] LABS: ALBUMIN 1.9 g/dL (3.4-5.0); BILIRUBIN,TOTAL 0.3 mg/dL (0.1-1.0); C-REACTIVE PROTEIN QUANT 4.44 mg/dL (0.00-0.30); CALCIUM, TOTAL 8.3 mg/dL (8.8-10.5); MAGNESIUM 2.4 mg/dL (1.80-2.40); PHOSPHORUS 3.6 mg/dL (2.5-4.9); POTASSIUM 4.9 mmol/L (3.5-5.1); TOTAL PROTEIN, SERUM 6.3 g/dL (6.4-8.2)
[2020-03-22] MEDS: APIXABAN 5 MG TABLET PO SCH ×2 (08:21→20:34)
[2020-03-22] MEDS: ZINC SULFATE 220 MG CAPSULE PO SCH ×2 (08:21→20:34)
[2020-03-22] MEDS: DEXAMETHASONE 2 MG TABLET PO SCH (08:21)
[2020-03-22] MEDS: CHOLECALCIFEROL (VIT D3) 1,000 UNITS [25 MCG] TABLET PO SCH (08:21)
[2020-03-22] MEDS: FAMOTIDINE 20 MG TABLET PO SCH ×2 (08:21→20:34)
[2020-03-22] MEDS: ASCORBIC ACID 500 MG TABLET PO SCH ×2 (08:21→20:34)
[2020-03-22] MEDS: INSULIN HUMAN NPH-REGULAR 70/30 100 UNITS/ML SQ SCH ×2 (08:22→20:44)
[2020-03-22] MEDS: FLUTICASONE PROPIONATE 50 MCG/SPRAY 16 GM NASAL SPRAY NASAL SCH (08:23)
[2020-03-22 11:13] VITALS: BP 132/73
[2020-03-22] MEDS: INSULIN LISPRO 100 UNITS/ML SQ PRN (11:26)
[2020-03-22 14:57] VITALS: BP 117/82
[2020-03-22 18:02] LABS: GLUCOMETER DEV NAME(LOC) 5N.3; GLUCOSE,POINT OF CARE 116 MG/DL (70-110)
[2020-03-22 20:34] VITALS: BP 112/43
[2020-03-22] MEDS: ZOLPIDEM TARTRATE 5 MG TABLET PO PRN (22:34)
[2020-03-23 00:05] LABS: GLUCOMETER DEV NAME(LOC) 5S.2B; GLUCOSE,POINT OF CARE 161 MG/DL (70-110)
[2020-03-23 00:06] LABS: GLUCOMETER DEV NAME(LOC) 5S.2B; GLUCOSE,POINT OF CARE 151 MG/DL (70-110)
[2020-03-23] MEDS: BENZONATATE 100 MG CAPSULE PO SCH ×3 (01:45→17:21)
[2020-03-23 05:19] VITALS: BP 112/53
[2020-03-23] MEDS: APIXABAN 5 MG TABLET PO SCH ×2 (08:56→21:13)
[2020-03-23] MEDS: FLUTICASONE PROPIONATE 50 MCG/SPRAY 16 GM NASAL SPRAY NASAL SCH (08:56)
[2020-03-23] MEDS: FAMOTIDINE 20 MG TABLET PO SCH ×2 (08:56→21:13)
[2020-03-23] MEDS: ZINC SULFATE 220 MG CAPSULE PO SCH ×2 (08:56→21:13)
[2020-03-23] MEDS: ASCORBIC ACID 500 MG TABLET PO SCH ×2 (08:57→21:13)
[2020-03-23] MEDS: DEXAMETHASONE 2 MG TABLET PO SCH (08:57)
[2020-03-23] MEDS: CHOLECALCIFEROL (VIT D3) 1,000 UNITS [25 MCG] TABLET PO SCH (08:57)
[2020-03-23 09:04] VITALS: BP 132/61
[2020-03-23] MEDS: INSULIN HUMAN NPH-REGULAR 70/30 100 UNITS/ML SQ SCH ×2 (09:08→21:00)
[2020-03-23] MEDS: INSULIN LISPRO 100 UNITS/ML SQ PRN ×2 (11:15→17:21)
[2020-03-23] MEDS: ACETAMINOPHEN 325 MG TABLET PO PRN (11:17)
[2020-03-23 12:31] VITALS: BP 129/61
[2020-03-23 20:01] LABS: GLUCOMETER DEV NAME(LOC) 5N.3; GLUCOSE,POINT OF CARE 63 MG/DL (70-110)
[2020-03-23 20:01] LABS: GLUCOMETER DEV NAME(LOC) 5N.3; GLUCOSE,POINT OF CARE 74 MG/DL (70-110)
[2020-03-23 20:01] LABS: GLUCOMETER DEV NAME(LOC) 5N.3; GLUCOSE,POINT OF CARE 126 MG/DL (70-110)
[2020-03-23 20:01] LABS: GLUCOMETER DEV NAME(LOC) 5N.3; GLUCOSE,POINT OF CARE 136 MG/DL (70-110)
[2020-03-23 20:45] VITALS: BP 137/77
[2020-03-24 00:16] VITALS: BP 135/68
[2020-03-24] MEDS: BENZONATATE 100 MG CAPSULE PO SCH ×3 (01:45→17:45)
[2020-03-24 05:51] VITALS: BP 139/61
[2020-03-24] MEDS: INSULIN LISPRO 100 UNITS/ML SQ PRN (06:32)
[2020-03-24 06:42] LABS: BASOPHILS % (AUTO) 0.3 % (0.0-2.0); EOSINOPHILS % (AUTO) 0 % (1.0-6.0); HEMATOCRIT 36.6 % (36-46); LYMPHOCYTES # (AUTO) 0.8 K/uL (1.0-4.8); MEAN CORPUSCULAR HGB CONC 32.7 G/dL (31.0-37.0); MEAN CORPUSCULAR VOLUME 92 fL (80-100); MONOCYTES # (AUTO) 0.7 K/uL (0.1-1.0); NEUTROPHILS # (AUTO) 15.3 K/uL (1.8-7.7); PLATELET COUNT (AUTO) 410 K/uL (150-450); RED BLOOD CELL COUNT(AUTO) 3.98 MIL/uL (4.00-5.20); RED CELL DISTRIBUTION WIDTH 14.2 % (11.5-14.5)
[2020-03-24 07:32] LABS: C-REACTIVE PROTEIN QUANT 4.91 mg/dL (0.00-0.30); CALCIUM, TOTAL 8.4 mg/dL (8.8-10.5); CREATININE 1.18 mg/dL (0.60-1.30); POTASSIUM 5.4 mmol/L (3.5-5.1)
[2020-03-24 07:41] LABS: NEUTROPHILS % (AUTO) 90.7 % (40.0-70.0)
[2020-03-24 08:39] VITALS: BP 120/50
[2020-03-24] MEDS: ZINC SULFATE 220 MG CAPSULE PO SCH ×2 (08:40→20:05)
[2020-03-24] MEDS: FAMOTIDINE 20 MG TABLET PO SCH ×2 (08:40→20:05)
[2020-03-24] MEDS: CHOLECALCIFEROL (VIT D3) 1,000 UNITS [25 MCG] TABLET PO SCH (08:40)
[2020-03-24] MEDS: DEXAMETHASONE 2 MG TABLET PO SCH (08:40)
[2020-03-24] MEDS: ASCORBIC ACID 500 MG TABLET PO SCH ×2 (08:40→20:05)
[2020-03-24] MEDS: APIXABAN 5 MG TABLET PO SCH ×2 (08:40→20:05)
[2020-03-24] MEDS: FLUTICASONE PROPIONATE 50 MCG/SPRAY 16 GM NASAL SPRAY NASAL SCH (08:40)
[2020-03-24] MEDS: INSULIN HUMAN NPH-REGULAR 70/30 100 UNITS/ML SQ SCH ×2 (08:43→21:00)
[2020-03-24 11:36] VITALS: BP 114/52
[2020-03-24] MEDS: ONDANSETRON HCL 4 MG/2 ML VIAL IVP PRN (11:57)
[2020-03-24 16:05] VITALS: BP 139/71
[2020-03-24 20:23] VITALS: BP 139/71
[2020-03-25] MEDS: BENZONATATE 100 MG CAPSULE PO SCH ×4 (00:31→23:17)
[2020-03-25 00:39] VITALS: BP 133/55
[2020-03-25 01:48] LABS: GLUCOMETER DEV NAME(LOC) 5N.1B; GLUCOSE,POINT OF CARE 76 MG/DL (70-110)
[2020-03-25 06:41] LABS: GLUCOMETER DEV NAME(LOC) 5N.3; GLUCOSE,POINT OF CARE 204 MG/DL (70-110)
[2020-03-25 07:10] LABS: GLUCOMETER DEV NAME(LOC) 5N.1B; GLUCOSE,POINT OF CARE 116 MG/DL (70-110)
[2020-03-25] MEDS: INSULIN HUMAN NPH-REGULAR 70/30 100 UNITS/ML SQ SCH ×2 (08:19→21:00)
[2020-03-25] MEDS: DEXAMETHASONE 2 MG TABLET PO SCH (08:20)
[2020-03-25] MEDS: FAMOTIDINE 20 MG TABLET PO SCH ×2 (08:20→21:16)
[2020-03-25] MEDS: ZINC SULFATE 220 MG CAPSULE PO SCH ×2 (08:20→21:15)
[2020-03-25] MEDS: APIXABAN 5 MG TABLET PO SCH ×2 (08:20→21:16)
[2020-03-25] MEDS: ASCORBIC ACID 500 MG TABLET PO SCH ×2 (08:20→21:16)
[2020-03-25] MEDS: CHOLECALCIFEROL (VIT D3) 1,000 UNITS [25 MCG] TABLET PO SCH (08:20)
[2020-03-25] MEDS: FLUTICASONE PROPIONATE 50 MCG/SPRAY 16 GM NASAL SPRAY NASAL SCH (08:21)
[2020-03-25 08:48] VITALS: BP 125/52
[2020-03-25 09:35] LABS: ABG A-A DIFF O2 620.4 mmHg (10-20.0); ABG BASE EXCESS -0.6 mmol/L (-2.0-3.0); ABG CARBOXYHEMOGLOBIN 0.3 % (0.0-1.5); ABG HCO3 24.2 mmol/L (22.0-26.0); ABG METHEMOGLOBIN 0.1 % (0.0-1.5); ABG OXYGEN CONTENT 16.9 mL/dL (15.0-23.0); ABG OXYGEN SATURATION 91.5 % (95.0-98.0); ABG OXYHEMOGLOBIN 91.1 % (94.0-100.0); ABG PCO2 36 mmHg (35-45); ABG PH 7.433 (7.35-7.450); ABG TOTAL HEMOGLOBIN 13.2 G/dL (12.0-18.0); O2 DEVICE,BLOOD GAS NON REBREATHER (ROOM AIR); PO2, ARTERIAL BG 57.2 mmHg (75.0-83.0); SITE, BLOOD GAS RT BRACHIAL; SOURCE, BLOOD GAS ARTERIAL
[2020-03-25] MEDS ORDERED: SODIUM POLYSTYRENE SULFONATE 15 GM/60 ML SUSPENSION BOTTLE PO ONE (10:00)
[2020-03-25 11:18] LABS: GLUCOMETER DEV NAME(LOC) 5N.3; GLUCOSE,POINT OF CARE 154 MG/DL (70-110)
[2020-03-25 11:55] VITALS: BP 145/65
[2020-03-25 15:50] VITALS: BP 128/69
[2020-03-25] MEDS: INSULIN LISPRO 100 UNITS/ML SQ PRN (17:26)
[2020-03-25 19:55] VITALS: BP 148/87
[2020-03-25 21:47] LABS: GLUCOMETER DEV NAME(LOC) 5N.3; GLUCOSE,POINT OF CARE 314 MG/DL (70-110)
[2020-03-25] MEDS: ZOLPIDEM TARTRATE 5 MG TABLET PO PRN (23:17)
[2020-03-25 23:59] VITALS: BP 134/60
[2020-03-26 05:19] VITALS: BP 124/77
[2020-03-26 07:41] LABS: GLUCOMETER DEV NAME(LOC) 5S.1; GLUCOSE,POINT OF CARE 242 MG/DL (70-110)
[2020-03-26 08:09] LABS: ALBUMIN 1.9 g/dL (3.4-5.0); BILIRUBIN,TOTAL 0.4 mg/dL (0.1-1.0); CALCIUM, TOTAL 8.5 mg/dL (8.8-10.5); CREATININE 1.18 mg/dL (0.60-1.30); POTASSIUM 5.5 mmol/L (3.5-5.1); TOTAL PROTEIN, SERUM 6.7 g/dL (6.4-8.2)
[2020-03-26] MEDS: APIXABAN 5 MG TABLET PO SCH ×2 (08:20→20:58)
[2020-03-26] MEDS: CHOLECALCIFEROL (VIT D3) 1,000 UNITS [25 MCG] TABLET PO SCH (08:20)
[2020-03-26] MEDS: ZINC SULFATE 220 MG CAPSULE PO SCH ×2 (08:20→20:58)
[2020-03-26] MEDS: DEXAMETHASONE 2 MG TABLET PO SCH (08:20)
[2020-03-26] MEDS: BENZONATATE 100 MG CAPSULE PO SCH ×2 (08:20→17:46)
[2020-03-26] MEDS: FAMOTIDINE 20 MG TABLET PO SCH ×2 (08:21→20:58)
[2020-03-26] MEDS: ASCORBIC ACID 500 MG TABLET PO SCH ×2 (08:21→20:58)
[2020-03-26] MEDS: INSULIN LISPRO 100 UNITS/ML SQ PRN ×3 (08:24→21:16)
[2020-03-26] MEDS: INSULIN HUMAN NPH-REGULAR 70/30 100 UNITS/ML SQ SCH ×2 (08:24→21:00)
[2020-03-26 08:37] VITALS: BP 160/57
[2020-03-26] MEDS: FLUTICASONE PROPIONATE 50 MCG/SPRAY 16 GM NASAL SPRAY NASAL SCH (10:47)
[2020-03-26 12:21] VITALS: BP 134/72
[2020-03-26] MEDS: SODIUM POLYSTYRENE SULFONATE 15 GM/60 ML SUSPENSION BOTTLE PO ONE ×2 (13:33→15:47)
[2020-03-26 16:00] VITALS: BP 143/75
[2020-03-26 19:38] VITALS: BP 141/71
[2020-03-26] MEDS: ACETAMINOPHEN 325 MG TABLET PO PRN (20:58)
[2020-03-27 00:15] VITALS: BP 126/58
[2020-03-27] MEDS: BENZONATATE 100 MG CAPSULE PO SCH ×3 (01:45→16:37)
[2020-03-27] MEDS: ACETAMINOPHEN 325 MG TABLET PO PRN ×2 (03:06→21:33)
[2020-03-27 04:26] VITALS: BP 136/62
[2020-03-27 04:56] LABS: GLUCOMETER DEV NAME(LOC) 5S.1; GLUCOSE,POINT OF CARE 223 MG/DL (70-110)
[2020-03-27 04:56] LABS: GLUCOMETER DEV NAME(LOC) 5N.1B; GLUCOSE,POINT OF CARE 168 MG/DL (70-110)
[2020-03-27 04:56] LABS: GLUCOMETER DEV NAME(LOC) 5N.1B; GLUCOSE,POINT OF CARE 137 MG/DL (70-110)
[2020-03-27 06:44] LABS: GLUCOMETER DEV NAME(LOC) 5S.1; GLUCOSE,POINT OF CARE 209 MG/DL (70-110)
[2020-03-27 08:18] VITALS: BP 131/57
[2020-03-27] MEDS: DEXAMETHASONE 2 MG TABLET PO SCH (09:14)
[2020-03-27] MEDS: APIXABAN 5 MG TABLET PO SCH ×2 (09:14→20:23)
[2020-03-27] MEDS: ZINC SULFATE 220 MG CAPSULE PO SCH ×2 (09:14→20:22)
[2020-03-27] MEDS: ASCORBIC ACID 500 MG TABLET PO SCH ×2 (09:14→20:22)
[2020-03-27] MEDS: FAMOTIDINE 20 MG TABLET PO SCH ×2 (09:14→20:22)
[2020-03-27] MEDS: CHOLECALCIFEROL (VIT D3) 1,000 UNITS [25 MCG] TABLET PO SCH (09:15)
[2020-03-27] MEDS: INSULIN HUMAN NPH-REGULAR 70/30 100 UNITS/ML SQ SCH ×2 (09:17→20:22)
[2020-03-27] MEDS: FLUTICASONE PROPIONATE 50 MCG/SPRAY 16 GM NASAL SPRAY NASAL SCH (09:20)
[2020-03-27] MEDS: INSULIN LISPRO 100 UNITS/ML SQ PRN ×2 (11:35→20:20)
[2020-03-27 11:42] VITALS: BP 133/65
[2020-03-27 15:24] LABS: GLUCOMETER DEV NAME(LOC) 5N.1B; GLUCOSE,POINT OF CARE 231 MG/DL (70-110)
[2020-03-27] MEDS: DOCUSATE SODIUM 100 MG/10 ML LIQUID UDCUP PO PRN (15:31)
[2020-03-27 17:10] VITALS: BP 126/62
[2020-03-27 18:38] LABS: GLUCOMETER DEV NAME(LOC) 5N.1B; GLUCOSE,POINT OF CARE 118 MG/DL (70-110)
[2020-03-27 20:48] VITALS: BP 138/63
[2020-03-27] MEDS: ZOLPIDEM TARTRATE 5 MG TABLET PO PRN (23:07)
[2020-03-28] VITALS (7 sets, daily range): BP systolic 112–141; BP diastolic 58–103
[2020-03-28 00:46] LABS: GLUCOMETER DEV NAME(LOC) 5N.1B; GLUCOSE,POINT OF CARE 242 MG/DL (70-110)
[2020-03-28] MEDS: BENZONATATE 100 MG CAPSULE PO SCH ×4 (01:33→16:58)
[2020-03-28] MEDS: DOCUSATE SODIUM 100 MG/10 ML LIQUID UDCUP PO PRN ×2 (02:04→16:58)
[2020-03-28] MEDS: MAGNESIUM HYDROXIDE SUSPENSION 30 ML UDCUP PO PRN ×2 (02:13→17:11)
[2020-03-28] MEDS: ACETAMINOPHEN 325 MG TABLET PO PRN ×2 (04:41→16:58)
[2020-03-28 06:22] LABS: BASOPHILS % (AUTO) 0.4 % (0.0-2.0); EOSINOPHILS % (AUTO) 0 % (1.0-6.0); HEMATOCRIT 36.1 % (36-46); HEMOGLOBIN 11.9 g/dL (12.0-16.0); LYMPHOCYTES # (AUTO) 1.1 K/uL (1.0-4.8); LYMPHOCYTES % (AUTO) 6.9 % (22.0-44.0); MEAN CORPUSCULAR HEMOGLOBIN 30.3 pg (26.0-34.0); MEAN CORPUSCULAR HGB CONC 32.9 G/dL (31.0-37.0); MEAN CORPUSCULAR VOLUME 92 fL (80-100); MONOCYTES # (AUTO) 0.9 K/uL (0.1-1.0); MONOCYTES % (AUTO) 5.5 % (2.0-9.0); NEUTROPHILS # (AUTO) 13.6 K/uL (1.8-7.7); PLATELET COUNT (AUTO) 316 K/uL (150-450); RED BLOOD CELL COUNT(AUTO) 3.92 MIL/uL (4.00-5.20); RED CELL DISTRIBUTION WIDTH 14.1 % (11.5-14.5)
[2020-03-28] MEDS: INSULIN LISPRO 100 UNITS/ML SQ PRN ×2 (06:27→20:54)
[2020-03-28 07:25] LABS: C-REACTIVE PROTEIN QUANT 4.99 mg/dL (0.00-0.30); CALCIUM, TOTAL 8.5 mg/dL (8.8-10.5); CREATININE 1.06 mg/dL (0.60-1.30); POTASSIUM 4.3 mmol/L (3.5-5.1)
[2020-03-28 07:32] LABS: GLUCOMETER DEV NAME(LOC) 5S.1; GLUCOSE,POINT OF CARE 149 MG/DL (70-110)
[2020-03-28 07:41] LABS: NEUTROPHILS % (AUTO) 87.2 % (40.0-70.0)
[2020-03-28] MEDS: ASCORBIC ACID 500 MG TABLET PO SCH ×2 (08:54→20:53)
[2020-03-28] MEDS: FAMOTIDINE 20 MG TABLET PO SCH ×2 (08:54→20:53)
[2020-03-28] MEDS: APIXABAN 5 MG TABLET PO SCH ×2 (08:54→20:53)
[2020-03-28] MEDS: DEXAMETHASONE 2 MG TABLET PO SCH (08:54)
[2020-03-28] MEDS: CHOLECALCIFEROL (VIT D3) 1,000 UNITS [25 MCG] TABLET PO SCH (08:54)
[2020-03-28] MEDS: ZINC SULFATE 220 MG CAPSULE PO SCH ×2 (08:54→20:53)
[2020-03-28] MEDS: FLUTICASONE PROPIONATE 50 MCG/SPRAY 16 GM NASAL SPRAY NASAL SCH (09:00)
[2020-03-28] MEDS: INSULIN HUMAN NPH-REGULAR 70/30 100 UNITS/ML SQ SCH ×2 (09:06→20:54)
[2020-03-28 23:11] LABS: GLUCOMETER DEV NAME(LOC) 5S.1; GLUCOSE,POINT OF CARE 189 MG/DL (70-110)
[2020-03-28 23:12] LABS: GLUCOMETER DEV NAME(LOC) 5N.1B; GLUCOSE,POINT OF CARE 110 MG/DL (70-110)
[2020-03-28 23:12] LABS: GLUCOMETER DEV NAME(LOC) 5N.1B; GLUCOSE,POINT OF CARE 108 MG/DL (70-110)
[2020-03-29] MEDS: BENZONATATE 100 MG CAPSULE PO SCH ×4 (01:17→16:57)
[2020-03-29] MEDS: ACETAMINOPHEN 325 MG TABLET PO PRN ×3 (01:17→20:13)
[2020-03-29 03:59] VITALS: BP 132/52
[2020-03-29 06:53] LABS: GLUCOMETER DEV NAME(LOC) 5N.1B; GLUCOSE,POINT OF CARE 82 MG/DL (70-110)
[2020-03-29 08:00] VITALS: BP 160/84
[2020-03-29] MEDS: FLUTICASONE PROPIONATE 50 MCG/SPRAY 16 GM NASAL SPRAY NASAL SCH (08:33)
[2020-03-29] MEDS: DEXAMETHASONE 2 MG TABLET PO SCH (08:33)
[2020-03-29] MEDS: FAMOTIDINE 20 MG TABLET PO SCH ×2 (08:33→20:12)
[2020-03-29] MEDS: CHOLECALCIFEROL (VIT D3) 1,000 UNITS [25 MCG] TABLET PO SCH (08:33)
[2020-03-29] MEDS: APIXABAN 5 MG TABLET PO SCH ×2 (08:33→20:13)
[2020-03-29] MEDS: ZINC SULFATE 220 MG CAPSULE PO SCH ×2 (08:33→20:13)
[2020-03-29] MEDS: ASCORBIC ACID 500 MG TABLET PO SCH ×2 (08:33→20:13)
[2020-03-29] MEDS: INSULIN HUMAN NPH-REGULAR 70/30 100 UNITS/ML SQ SCH ×2 (08:36→20:26)
[2020-03-29] MEDS: ONDANSETRON HCL 4 MG/2 ML VIAL IVP PRN ×2 (08:59→20:13)
[2020-03-29] MEDS: MAGNESIUM HYDROXIDE SUSPENSION 30 ML UDCUP PO PRN (11:53)
[2020-03-29] MEDS: INSULIN LISPRO 100 UNITS/ML SQ PRN (11:57)
[2020-03-29 12:55] VITALS: BP 120/79
[2020-03-29 13:35] LABS: GLUCOMETER DEV NAME(LOC) 5N.1B; GLUCOSE,POINT OF CARE 160 MG/DL (70-110)
[2020-03-29 16:20] VITALS: BP 127/51
[2020-03-29 18:54] LABS: GLUCOMETER DEV NAME(LOC) 5S.1; GLUCOSE,POINT OF CARE 80 MG/DL (70-110)
[2020-03-29 19:10] VITALS: BP 118/64
[2020-03-29] MEDS: ZOLPIDEM TARTRATE 5 MG TABLET PO PRN (20:13)
[2020-03-29 21:24] LABS: GLUCOMETER DEV NAME(LOC) 5N.1B; GLUCOSE,POINT OF CARE 92 MG/DL (70-110)
[2020-03-30] VITALS (7 sets, daily range): BP systolic 115–149; BP diastolic 55–79
[2020-03-30] MEDS: BENZONATATE 100 MG CAPSULE PO SCH ×4 (01:32→17:33)
[2020-03-30] MEDS: INSULIN HUMAN NPH-REGULAR 70/30 100 UNITS/ML SQ SCH ×2 (09:00→20:42)
[2020-03-30] MEDS: APIXABAN 5 MG TABLET PO SCH ×2 (09:28→20:29)
[2020-03-30] MEDS: FLUTICASONE PROPIONATE 50 MCG/SPRAY 16 GM NASAL SPRAY NASAL SCH (09:28)
[2020-03-30] MEDS: ASCORBIC ACID 500 MG TABLET PO SCH ×2 (09:28→20:29)
[2020-03-30] MEDS: DEXAMETHASONE 2 MG TABLET PO SCH (09:28)
[2020-03-30] MEDS: FAMOTIDINE 20 MG TABLET PO SCH ×2 (09:28→20:29)
[2020-03-30] MEDS: ZINC SULFATE 220 MG CAPSULE PO SCH ×2 (09:29→20:29)
[2020-03-30] MEDS: CHOLECALCIFEROL (VIT D3) 1,000 UNITS [25 MCG] TABLET PO SCH (09:32)
[2020-03-30] MEDS ORDERED: LORazepam 2 MG/ML VIAL ONE (11:22)
[2020-03-30] MEDS: LORazepam 2 MG/ML VIAL IVP PRN ×2 (11:30→20:29)
[2020-03-30] MEDS: INSULIN LISPRO 100 UNITS/ML SQ PRN ×3 (11:38→20:30)
[2020-03-30 16:04] LABS: MAGNESIUM 2.3 mg/dL (1.80-2.40); PHOSPHORUS 3.9 mg/dL (2.5-4.9)
[2020-03-30 19:54] LABS: GLUCOMETER DEV NAME(LOC) 5S.1; GLUCOSE,POINT OF CARE 84 MG/DL (70-110)
[2020-03-30 19:54] LABS: GLUCOMETER DEV NAME(LOC) 5N.1B; GLUCOSE,POINT OF CARE 130 MG/DL (70-110)
[2020-03-30 19:54] LABS: GLUCOMETER DEV NAME(LOC) 5N.1B; GLUCOSE,POINT OF CARE 187 MG/DL (70-110)
[2020-03-30] MEDS: ACETAMINOPHEN 325 MG TABLET PO PRN (20:29)
[2020-03-30] MEDS: ZOLPIDEM TARTRATE 5 MG TABLET PO PRN (23:10)
[2020-03-31] MEDS: BENZONATATE 100 MG CAPSULE PO SCH ×3 (01:23→17:21)
[2020-03-31 04:08] LABS: GLUCOMETER DEV NAME(LOC) 5S.1; GLUCOSE,POINT OF CARE 208 MG/DL (70-110)
[2020-03-31 04:49] VITALS: BP 128/70
[2020-03-31] MEDS: INSULIN LISPRO 100 UNITS/ML SQ PRN ×4 (05:28→21:26)
[2020-03-31] MEDS: INSULIN HUMAN NPH-REGULAR 70/30 100 UNITS/ML SQ SCH ×2 (07:10→21:00)
[2020-03-31 07:50] LABS: BASOPHILS % (AUTO) 0.4 % (0.0-2.0); EOSINOPHILS % (AUTO) 0.2 % (1.0-6.0); HEMATOCRIT 37.4 % (36-46); HEMOGLOBIN 12.1 g/dL (12.0-16.0); LYMPHOCYTES # (AUTO) 1.4 K/uL (1.0-4.8); LYMPHOCYTES % (AUTO) 8.1 % (22.0-44.0); MEAN CORPUSCULAR HEMOGLOBIN 29.9 pg (26.0-34.0); MEAN CORPUSCULAR HGB CONC 32.4 G/dL (31.0-37.0); MEAN CORPUSCULAR VOLUME 92 fL (80-100); MONOCYTES # (AUTO) 0.2 K/uL (0.1-1.0); MONOCYTES % (AUTO) 1.2 % (2.0-9.0); NEUTROPHILS # (AUTO) 15.3 K/uL (1.8-7.7); PLATELET COUNT (AUTO) 253 K/uL (150-450); RED BLOOD CELL COUNT(AUTO) 4.06 MIL/uL (4.00-5.20); RED CELL DISTRIBUTION WIDTH 13.8 % (11.5-14.5)
[2020-03-31 07:52] VITALS: BP 105/63
[2020-03-31 08:01] LABS: NEUTROPHILS % (AUTO) 90.1 % (40.0-70.0)
[2020-03-31 08:03] LABS: ALBUMIN 2.1 g/dL (3.4-5.0); BILIRUBIN,TOTAL 0.4 mg/dL (0.1-1.0); C-REACTIVE PROTEIN QUANT 4.31 mg/dL (0.00-0.30); CALCIUM, TOTAL 8.7 mg/dL (8.8-10.5); CREATININE 1.17 mg/dL (0.60-1.30); POTASSIUM 5.5 mmol/L (3.5-5.1); TOTAL PROTEIN, SERUM 6.6 g/dL (6.4-8.2)
[2020-03-31] MEDS: ASCORBIC ACID 500 MG TABLET PO SCH ×2 (08:14→21:26)
[2020-03-31] MEDS: THIAMINE 100 MG TABLET PO SCH (08:15)
[2020-03-31] MEDS: FAMOTIDINE 20 MG TABLET PO SCH ×2 (08:15→21:26)
[2020-03-31] MEDS: APIXABAN 5 MG TABLET PO SCH ×2 (08:15→21:26)
[2020-03-31] MEDS: CHOLECALCIFEROL (VIT D3) 1,000 UNITS [25 MCG] TABLET PO SCH (08:15)
[2020-03-31] MEDS: ZINC SULFATE 220 MG CAPSULE PO SCH ×2 (08:15→21:26)
[2020-03-31] MEDS: FLUTICASONE PROPIONATE 50 MCG/SPRAY 16 GM NASAL SPRAY NASAL SCH ×2 (10:17→10:21)
[2020-03-31] MEDS: DOCUSATE SODIUM 100 MG/10 ML LIQUID UDCUP PO PRN ×2 (10:17→10:21)
[2020-03-31 11:27] VITALS: BP 129/50
[2020-03-31] MEDS ORDERED: SODIUM POLYSTYRENE SULFONATE 15 GM/60 ML SUSPENSION BOTTLE PO ONE ×2 (11:30)
[2020-03-31] MEDS: DEXAMETHASONE 2 MG TABLET PO SCH (11:53)
[2020-03-31 16:29] VITALS: BP 145/65
[2020-03-31 20:15] VITALS: BP 137/60
[2020-03-31] MEDS: ZOLPIDEM TARTRATE 5 MG TABLET PO PRN (21:26)
[2020-03-31] MEDS: ACETAMINOPHEN 325 MG TABLET PO PRN (21:27)
[2020-04-01] MEDS: BENZONATATE 100 MG CAPSULE PO SCH ×3 (01:45→16:41)
[2020-04-01] MEDS: LORazepam 2 MG/ML VIAL IVP PRN (03:59)
[2020-04-01] MEDS: ACETAMINOPHEN 325 MG TABLET PO PRN ×2 (04:00→21:22)
[2020-04-01 05:12] VITALS: BP 129/56
[2020-04-01] MEDS: INSULIN LISPRO 100 UNITS/ML SQ PRN ×3 (06:08→16:45)
[2020-04-01 07:23] VITALS: BP 125/55
[2020-04-01 07:48] LABS: GLUCOMETER DEV NAME(LOC) 5N.1B; GLUCOSE,POINT OF CARE 280 MG/DL (70-110)
[2020-04-01 07:48] LABS: GLUCOMETER DEV NAME(LOC) 5S.1; GLUCOSE,POINT OF CARE 250 MG/DL (70-110)
[2020-04-01 07:48] LABS: GLUCOMETER DEV NAME(LOC) 5N.1B; GLUCOSE,POINT OF CARE 163 MG/DL (70-110)
[2020-04-01 07:48] LABS: GLUCOMETER DEV NAME(LOC) 5N.1B; GLUCOSE,POINT OF CARE 132 MG/DL (70-110)
[2020-04-01 07:48] LABS: GLUCOMETER DEV NAME(LOC) 5S.1; GLUCOSE,POINT OF CARE 155 MG/DL (70-110)
[2020-04-01] MEDS: APIXABAN 5 MG TABLET PO SCH (08:04)
[2020-04-01] MEDS: ZINC SULFATE 220 MG CAPSULE PO SCH ×2 (08:04→21:21)
[2020-04-01] MEDS: ASCORBIC ACID 500 MG TABLET PO SCH ×2 (08:04→21:22)
[2020-04-01] MEDS: THIAMINE 100 MG TABLET PO SCH (08:04)
[2020-04-01] MEDS: FAMOTIDINE 20 MG TABLET PO SCH ×2 (08:04→21:21)
[2020-04-01] MEDS: CHOLECALCIFEROL (VIT D3) 1,000 UNITS [25 MCG] TABLET PO SCH (08:04)
[2020-04-01] MEDS: DEXAMETHASONE 2 MG TABLET PO SCH (08:04)
[2020-04-01] MEDS: INSULIN HUMAN NPH-REGULAR 70/30 100 UNITS/ML SQ SCH ×2 (08:08→23:05)
[2020-04-01 09:02] LABS: BASOPHILS % (AUTO) 0.6 % (0.0-2.0); EOSINOPHILS % (AUTO) 0.2 % (1.0-6.0); HEMATOCRIT 37.3 % (36-46); HEMOGLOBIN 12.1 g/dL (12.0-16.0); LYMPHOCYTES # (AUTO) 1.3 K/uL (1.0-4.8); LYMPHOCYTES % (AUTO) 8.2 % (22.0-44.0); MEAN CORPUSCULAR HGB CONC 32.5 G/dL (31.0-37.0); MEAN CORPUSCULAR VOLUME 92 fL (80-100); MONOCYTES # (AUTO) 0.6 K/uL (0.1-1.0); MONOCYTES % (AUTO) 3.8 % (2.0-9.0); NEUTROPHILS # (AUTO) 13.5 K/uL (1.8-7.7); PLATELET COUNT (AUTO) 242 K/uL (150-450); RED BLOOD CELL COUNT(AUTO) 4.04 MIL/uL (4.00-5.20)
[2020-04-01 09:18] LABS: NEUTROPHILS % (AUTO) 87.2 % (40.0-70.0)
[2020-04-01 09:22] LABS: C-REACTIVE PROTEIN QUANT 4.55 mg/dL (0.00-0.30); CALCIUM, TOTAL 8.5 mg/dL (8.8-10.5); CREATININE 1.22 mg/dL (0.60-1.30); POTASSIUM 4.4 mmol/L (3.5-5.1)
[2020-04-01 10:57] VITALS: BP 143/63
[2020-04-01 15:59] VITALS: BP 151/59
[2020-04-01 20:48] VITALS: BP 112/69
[2020-04-02 04:02] VITALS: BP 132/60
[2020-04-02 05:40] LABS: GLUCOMETER DEV NAME(LOC) 5N.1B; GLUCOSE,POINT OF CARE 138 MG/DL (70-110)
[2020-04-02 07:34] VITALS: BP 131/60
[2020-04-02 07:40] LABS: PROTHROMBIN TIME 11.1 SEC (9.4-11.6)
[2020-04-02] MEDS: BENZONATATE 100 MG CAPSULE PO SCH ×3 (08:00→17:06)
[2020-04-02] MEDS: ZINC SULFATE 220 MG CAPSULE PO SCH ×2 (08:31→21:00)
[2020-04-02] MEDS: ASCORBIC ACID 500 MG TABLET PO SCH ×2 (08:31→21:00)
[2020-04-02] MEDS: DEXAMETHASONE 2 MG TABLET PO SCH (08:31)
[2020-04-02] MEDS: CHOLECALCIFEROL (VIT D3) 1,000 UNITS [25 MCG] TABLET PO SCH (08:31)
[2020-04-02] MEDS: FAMOTIDINE 20 MG TABLET PO SCH ×2 (08:31→21:00)
[2020-04-02] MEDS: THIAMINE 100 MG TABLET PO SCH (08:31)
[2020-04-02] MEDS: INSULIN HUMAN NPH-REGULAR 70/30 100 UNITS/ML SQ SCH ×2 (08:32→21:00)
[2020-04-02] MEDS: FLUTICASONE PROPIONATE 50 MCG/SPRAY 16 GM NASAL SPRAY NASAL SCH (08:33)
[2020-04-02 08:51] LABS: GLUCOMETER DEV NAME(LOC) 5S.1; GLUCOSE,POINT OF CARE 235 MG/DL (70-110)
[2020-04-02 08:51] LABS: GLUCOMETER DEV NAME(LOC) 5N.1B; GLUCOSE,POINT OF CARE 176 MG/DL (70-110)
[2020-04-02 08:51] LABS: GLUCOMETER DEV NAME(LOC) 5S.1; GLUCOSE,POINT OF CARE 258 MG/DL (70-110)
[2020-04-02 10:45] VITALS: BP 122/61
[2020-04-02] MEDS ORDERED: DEXTROSE 5%-0.45% SODIUM CHL 500 ML IV SCH (10:45)
[2020-04-02] MEDS: INSULIN LISPRO 100 UNITS/ML SQ PRN ×3 (11:24→21:11)
[2020-04-02 14:53] VITALS: BP 130/86
[2020-04-02 15:47] LABS: GLUCOMETER DEV NAME(LOC) 5N.1B; GLUCOSE,POINT OF CARE 209 MG/DL (70-110)
[2020-04-02 17:56] LABS: GLUCOMETER DEV NAME(LOC) 5N.1B; GLUCOSE,POINT OF CARE 288 MG/DL (70-110)
[2020-04-02] MEDS: ACETAMINOPHEN 325 MG TABLET PO PRN (18:26)
[2020-04-02 20:11] VITALS: BP 103/51
[2020-04-02 23:40] VITALS: BP 122/55
[2020-04-03] VITALS (9 sets, daily range): BP systolic 90–152; BP diastolic 40–63
[2020-04-03] MEDS: BENZONATATE 100 MG CAPSULE PO SCH ×4 (00:44→23:48)
[2020-04-03] MEDS: ZOLPIDEM TARTRATE 5 MG TABLET PO PRN (00:56)
[2020-04-03] MEDS: LORazepam 2 MG/ML VIAL IVP PRN ×2 (00:57→05:10)
[2020-04-03 08:05] LABS: GLUCOMETER DEV NAME(LOC) 5S.1; GLUCOSE,POINT OF CARE 159 MG/DL (70-110)
[2020-04-03 08:05] LABS: GLUCOMETER DEV NAME(LOC) 5S.1; GLUCOSE,POINT OF CARE 187 MG/DL (70-110)
[2020-04-03] MEDS: CHOLECALCIFEROL (VIT D3) 1,000 UNITS [25 MCG] TABLET PO SCH (08:54)
[2020-04-03] MEDS: THIAMINE 100 MG TABLET PO SCH (08:54)
[2020-04-03] MEDS: DEXAMETHASONE 2 MG TABLET PO SCH (08:54)
[2020-04-03] MEDS: ZINC SULFATE 220 MG CAPSULE PO SCH ×2 (08:55→20:53)
[2020-04-03] MEDS: ASCORBIC ACID 500 MG TABLET PO SCH ×2 (08:56→20:53)
[2020-04-03] MEDS: FAMOTIDINE 20 MG TABLET PO SCH ×2 (08:56→20:53)
[2020-04-03] MEDS: FLUTICASONE PROPIONATE 50 MCG/SPRAY 16 GM NASAL SPRAY NASAL SCH (09:00)
[2020-04-03] MEDS: INSULIN HUMAN NPH-REGULAR 70/30 100 UNITS/ML SQ SCH ×2 (09:10→20:53)
[2020-04-03] MEDS: INSULIN LISPRO 100 UNITS/ML SQ PRN ×3 (12:22→17:33)
[2020-04-03 13:54] LABS: GLUCOMETER DEV NAME(LOC) 5S.1; GLUCOSE,POINT OF CARE 226 MG/DL (70-110)
[2020-04-03 13:54] LABS: GLUCOMETER DEV NAME(LOC) 5S.1; GLUCOSE,POINT OF CARE 171 MG/DL (70-110)
[2020-04-04] VITALS (9 sets, daily range): BP systolic 118–143; BP diastolic 47–55
[2020-04-04 01:57] LABS: GLUCOMETER DEV NAME(LOC) 5N.1B; GLUCOSE,POINT OF CARE 255 MG/DL (70-110)
[2020-04-04 05:03] LABS: ABG A-A DIFF O2 589.3 mmHg (10-20.0); ABG CARBOXYHEMOGLOBIN 0.3 % (0.0-1.5); ABG HCO3 28.1 mmol/L (22.0-26.0); ABG METHEMOGLOBIN 0.1 % (0.0-1.5); ABG OXYGEN CONTENT 16.6 mL/dL (15.0-23.0); ABG OXYGEN SATURATION 95.5 % (95.0-98.0); ABG OXYHEMOGLOBIN 95.1 % (94.0-100.0); ABG PCO2 49 mmHg (35-45); ABG PH 7.399 (7.35-7.450); ABG TOTAL HEMOGLOBIN 12.4 G/dL (12.0-18.0); PO2, ARTERIAL BG 74.3 mmHg (75.0-83.0); SITE, BLOOD GAS LFT RADIAL; SOURCE, BLOOD GAS ARTERIAL; TEMPERATURE, FAHRENHEIT, BG 98.6 FAHREN (96.0-98.6)
[2020-04-04 05:04] LABS: O2 DEVICE,BLOOD GAS NON REBREATHER (ROOM AIR)
[2020-04-04 06:28] LABS: GLUCOMETER DEV NAME(LOC) AHU.; GLUCOSE,POINT OF CARE 164 MG/DL (70-110)
[2020-04-04 06:28] LABS: GLUCOMETER DEV NAME(LOC) AHU.; GLUCOSE,POINT OF CARE 168 MG/DL (70-110)
[2020-04-04 06:28] LABS: BASOPHILS % (AUTO) 0.7 % (0.0-2.0); EOSINOPHILS % (AUTO) 0.3 % (1.0-6.0); HEMATOCRIT 35.2 % (36-46); HEMOGLOBIN 11.3 g/dL (12.0-16.0); LYMPHOCYTES # (AUTO) 1.3 K/uL (1.0-4.8); LYMPHOCYTES % (AUTO) 7.9 % (22.0-44.0); MEAN CORPUSCULAR HEMOGLOBIN 29.6 pg (26.0-34.0); MEAN CORPUSCULAR VOLUME 93 fL (80-100); MONOCYTES # (AUTO) 0.4 K/uL (0.1-1.0); MONOCYTES % (AUTO) 2.6 % (2.0-9.0); NEUTROPHILS # (AUTO) 14.4 K/uL (1.8-7.7); PLATELET COUNT (AUTO) 222 K/uL (150-450); RED CELL DISTRIBUTION WIDTH 14.3 % (11.5-14.5)
[2020-04-04 06:55] LABS: D-DIMER 0.45 mg/L FEU (0.00-0.50)
[2020-04-04 06:57] LABS: ALANINE AMINOTRANSFERASE 45 U/L (12-78); ALBUMIN 2.2 g/dL (3.4-5.0); ALKALINE PHOSPHATASE 90 U/L (46-116); ANION GAP 6 mmol/L (8-16); ASPARTATE AMINOTRANSFERASE 20 U/L (15-37); BILIRUBIN,TOTAL 0.3 mg/dL (0.1-1.0); C-REACTIVE PROTEIN QUANT 4.51 mg/dL (0.00-0.30); CALCIUM, TOTAL 8.5 mg/dL (8.8-10.5); CARBON DIOXIDE 29 mmol/L (22-29); CHLORIDE 102 mmol/L (98-107); CREATININE 1.16 mg/dL (0.60-1.30); FERRITIN 409 ng/mL (8-252); GLOMERULAR FILTR. RATE CALC 46 mL/min (>60); GLUCOSE,RANDOM 161 mg/dL (70-110); NEUTROPHILS % (AUTO) 88.5 % (40.0-70.0); POTASSIUM 4.6 mmol/L (3.5-5.1); SODIUM SERUM 137 mmol/L (136-145); TOTAL PROTEIN, SERUM 6.4 g/dL (6.4-8.2); UREA NITROGEN, BLOOD 49 mg/dL (7-18)
[2020-04-04] MEDS: BENZONATATE 100 MG CAPSULE PO SCH ×3 (08:00→16:00)
[2020-04-04] MEDS: FLUTICASONE PROPIONATE 50 MCG/SPRAY 16 GM NASAL SPRAY NASAL SCH ×2 (09:00→10:49)
[2020-04-04] MEDS: CHOLECALCIFEROL (VIT D3) 1,000 UNITS [25 MCG] TABLET PO SCH ×2 (09:00→10:49)
[2020-04-04] MEDS: FAMOTIDINE 20 MG TABLET PO SCH ×2 (09:00→10:50)
[2020-04-04] MEDS: INSULIN HUMAN NPH-REGULAR 70/30 100 UNITS/ML SQ SCH ×2 (09:00→22:48)
[2020-04-04] MEDS: DEXAMETHASONE 2 MG TABLET PO SCH ×2 (09:00→10:49)
[2020-04-04] MEDS: THIAMINE 100 MG TABLET PO SCH ×2 (09:00→10:50)
[2020-04-04] MEDS: ZINC SULFATE 220 MG CAPSULE PO SCH ×2 (09:00→10:49)
[2020-04-04 09:16] LABS: LACTATE DEHYDROGENASE 414 U/L (81-234)
[2020-04-04 09:53] LABS: PROTHROMBIN TIME 10.7 SEC (9.4-11.6)
[2020-04-04] MEDS: ASCORBIC ACID 500 MG TABLET PO SCH ×2 (10:30→10:50)
[2020-04-04] MEDS: INSULIN LISPRO 100 UNITS/ML SQ PRN ×2 (11:54→17:32)
[2020-04-04] MEDS: LORazepam 2 MG/ML VIAL IVP PRN ×2 (13:31→22:48)
[2020-04-04] MEDS: FAMOTIDINE 10 MG/ML 2 ML VIAL IVP SCH (14:34)
[2020-04-04] MEDS: DEXAMETHASONE SOD PHOS 4 MG/ML VIAL IVP SCH (14:35)
[2020-04-04 17:10] LABS: ABG A-A DIFF O2 583.2 mmHg (10-20.0); ABG BASE EXCESS 3.5 mmol/L (-2.0-3.0); ABG CARBOXYHEMOGLOBIN 0.5 % (0.0-1.5); ABG HCO3 27.1 mmol/L (22.0-26.0); ABG METHEMOGLOBIN 0.3 % (0.0-1.5); ABG OXYGEN CONTENT 16.3 mL/dL (15.0-23.0); ABG OXYGEN SATURATION 96.4 % (95.0-98.0); ABG OXYHEMOGLOBIN 95.6 % (94.0-100.0); ABG PCO2 46 mmHg (35-45); ABG PH 7.403 (7.35-7.450); ABG TOTAL HEMOGLOBIN 12.1 G/dL (12.0-18.0); PO2, ARTERIAL BG 83.9 mmHg (75.0-83.0); SITE, BLOOD GAS RT RADIAL; SOURCE, BLOOD GAS ARTERIAL; TEMPERATURE, FAHRENHEIT, BG 98.2 FAHREN (96.0-98.6)
[2020-04-04 17:11] LABS: O2 DEVICE,BLOOD GAS NON REBREATHER (ROOM AIR)
[2020-04-05] VITALS (10 sets, daily range): BP systolic 91–151; BP diastolic 39–65
[2020-04-05] MEDS: BENZONATATE 100 MG CAPSULE PO SCH ×3 (00:33→17:44)
[2020-04-05 02:52] LABS: GLUCOMETER DEV NAME(LOC) AHU.; GLUCOSE,POINT OF CARE 137 MG/DL (70-110)
[2020-04-05 05:02] LABS: BASOPHILS % (AUTO) 0.4 % (0.0-2.0); EOSINOPHILS % (AUTO) 0.1 % (1.0-6.0); HEMATOCRIT 34.1 % (36-46); HEMOGLOBIN 11.1 g/dL (12.0-16.0); LYMPHOCYTES # (AUTO) 1.1 K/uL (1.0-4.8); LYMPHOCYTES % (AUTO) 8.7 % (22.0-44.0); MEAN CORPUSCULAR HEMOGLOBIN 29.8 pg (26.0-34.0); MEAN CORPUSCULAR HGB CONC 32.5 G/dL (31.0-37.0); MEAN CORPUSCULAR VOLUME 92 fL (80-100); MONOCYTES # (AUTO) 0.4 K/uL (0.1-1.0); MONOCYTES % (AUTO) 3.4 % (2.0-9.0); NEUTROPHILS # (AUTO) 11.2 K/uL (1.8-7.7); PLATELET COUNT (AUTO) 240 K/uL (150-450); RED BLOOD CELL COUNT(AUTO) 3.71 MIL/uL (4.00-5.20)
[2020-04-05 05:14] LABS: ALBUMIN 2.1 g/dL (3.4-5.0); BILIRUBIN,TOTAL 0.3 mg/dL (0.1-1.0); C-REACTIVE PROTEIN QUANT 2.62 mg/dL (0.00-0.30); CALCIUM, TOTAL 8.3 mg/dL (8.8-10.5); CREATININE 1.11 mg/dL (0.60-1.30); POTASSIUM 4.8 mmol/L (3.5-5.1); TOTAL PROTEIN, SERUM 6.3 g/dL (6.4-8.2)
[2020-04-05 05:35] LABS: NEUTROPHILS % (AUTO) 87.4 % (40.0-70.0)
[2020-04-05 07:20] LABS: GLUCOMETER DEV NAME(LOC) AHU.; GLUCOSE,POINT OF CARE 71 MG/DL (70-110)
[2020-04-05] MEDS: DEXAMETHASONE SOD PHOS 4 MG/ML VIAL IVP SCH (08:32)
[2020-04-05] MEDS: INSULIN HUMAN NPH-REGULAR 70/30 100 UNITS/ML SQ SCH ×2 (08:33→21:16)
[2020-04-05] MEDS: FLUTICASONE PROPIONATE 50 MCG/SPRAY 16 GM NASAL SPRAY NASAL SCH (08:33)
[2020-04-05] MEDS: THIAMINE 100 MG TABLET PO SCH (09:00)
[2020-04-05] MEDS ORDERED: PARoxetine HCL 10 MG TABLET PO ONE (10:00)
[2020-04-05 12:56] LABS: GLUCOMETER DEV NAME(LOC) AHU.; GLUCOSE,POINT OF CARE 125 MG/DL (70-110)
[2020-04-05] MEDS: INSULIN LISPRO 100 UNITS/ML SQ PRN (17:47)
[2020-04-05] MEDS: LORazepam 2 MG/ML VIAL IVP PRN (19:10)
[2020-04-05 19:13] LABS: GLUCOMETER DEV NAME(LOC) AHU.; GLUCOSE,POINT OF CARE 214 MG/DL (70-110)
[2020-04-05 19:13] LABS: GLUCOMETER DEV NAME(LOC) AHU.; GLUCOSE,POINT OF CARE 233 MG/DL (70-110)
[2020-04-05 21:05] LABS: ABG A-A DIFF O2 605.5 mmHg (10-20.0); ABG BASE EXCESS 4.4 mmol/L (-2.0-3.0); ABG CARBOXYHEMOGLOBIN 0.4 % (0.0-1.5); ABG METHEMOGLOBIN 0.3 % (0.0-1.5); ABG OXYGEN CONTENT 16.4 mL/dL (15.0-23.0); ABG OXYGEN SATURATION 93.9 % (95.0-98.0); ABG OXYHEMOGLOBIN 93.2 % (94.0-100.0); ABG PCO2 42 mmHg (35-45); ABG PH 7.451 (7.35-7.450); ABG TOTAL HEMOGLOBIN 12.5 G/dL (12.0-18.0); PO2, ARTERIAL BG 65.6 mmHg (75.0-83.0); SOURCE, BLOOD GAS ARTERIAL; TEMPERATURE, FAHRENHEIT, BG 98.8 FAHREN (96.0-98.6)
[2020-04-05 21:06] LABS: SITE, BLOOD GAS LFT RADIAL
[2020-04-05 21:23] LABS: GLUCOMETER DEV NAME(LOC) AHU.; GLUCOSE,POINT OF CARE 157 MG/DL (70-110)
[2020-04-06 01:05] VITALS: BP 97/32
[2020-04-06 04:38] VITALS: BP 128/47
[2020-04-06 06:27] LABS: BASOPHILS % (AUTO) 0.5 % (0.0-2.0); EOSINOPHILS % (AUTO) 1.2 % (1.0-6.0); HEMATOCRIT 39.9 % (36-46); HEMOGLOBIN 12.7 g/dL (12.0-16.0); LYMPHOCYTES # (AUTO) 1.2 K/uL (1.0-4.8); LYMPHOCYTES % (AUTO) 7.2 % (22.0-44.0); MEAN CORPUSCULAR HEMOGLOBIN 29.6 pg (26.0-34.0); MEAN CORPUSCULAR HGB CONC 31.8 G/dL (31.0-37.0); MEAN CORPUSCULAR VOLUME 93 fL (80-100); MONOCYTES # (AUTO) 0.8 K/uL (0.1-1.0); MONOCYTES % (AUTO) 4.5 % (2.0-9.0); NEUTROPHILS # (AUTO) 14.6 K/uL (1.8-7.7); PLATELET COUNT (AUTO) 318 K/uL (150-450); RED BLOOD CELL COUNT(AUTO) 4.29 MIL/uL (4.00-5.20); RED CELL DISTRIBUTION WIDTH 14.4 % (11.5-14.5)
[2020-04-06 06:38] LABS: NEUTROPHILS % (AUTO) 86.6 % (40.0-70.0)
[2020-04-06 06:58] LABS: ALBUMIN 2.5 g/dL (3.4-5.0); BILIRUBIN,TOTAL 0.3 mg/dL (0.1-1.0); CALCIUM, TOTAL 8.9 mg/dL (8.8-10.5); CREATININE 1.04 mg/dL (0.60-1.30); POTASSIUM 4.3 mmol/L (3.5-5.1); TOTAL PROTEIN, SERUM 7.1 g/dL (6.4-8.2)
[2020-04-06] MEDS: DEXTROSE 50%-WATER 25 GM/50 ML SYRINGE IVP PRN ×2 (07:09→12:20)
[2020-04-06 08:00] VITALS: BP 107/47
[2020-04-06] MEDS: BENZONATATE 100 MG CAPSULE PO SCH ×4 (08:00→22:13)
[2020-04-06] MEDS: DEXAMETHASONE SOD PHOS 4 MG/ML VIAL IVP SCH (09:00)
[2020-04-06] MEDS: FLUTICASONE PROPIONATE 50 MCG/SPRAY 16 GM NASAL SPRAY NASAL SCH (09:00)
[2020-04-06] MEDS: PARoxetine HCL 10 MG TABLET PO SCH (09:00)
[2020-04-06] MEDS: THIAMINE 100 MG TABLET PO SCH (09:00)
[2020-04-06] MEDS: FAMOTIDINE 10 MG/ML 2 ML VIAL IVP SCH (09:00)
[2020-04-06 09:28] LABS: GLUCOMETER DEV NAME(LOC) AHU.; GLUCOSE,POINT OF CARE 183 MG/DL (70-110)
[2020-04-06 12:00] VITALS: BP 104/58
[2020-04-06] MEDS: DEXTROSE 5%-0.45% SODIUM CHL 1,000 ML IV SCH (12:20)
[2020-04-06] MEDS ORDERED: LIDOCAINE/PF 1% 5 ML VIAL ONE (12:54)
[2020-04-06 12:58] LABS: GLUCOMETER DEV NAME(LOC) AHU.; GLUCOSE,POINT OF CARE 203 MG/DL (70-110)
[2020-04-06 15:07] LABS: ABG A-A DIFF O2 580.1 mmHg (10-20.0); ABG BASE EXCESS 2.5 mmol/L (-2.0-3.0); ABG CARBOXYHEMOGLOBIN 0.4 % (0.0-1.5); ABG METHEMOGLOBIN 0.3 % (0.0-1.5); ABG OXYGEN CONTENT 17.4 mL/dL (15.0-23.0); ABG OXYGEN SATURATION 96.9 % (95.0-98.0); ABG OXYHEMOGLOBIN 96.2 % (94.0-100.0); ABG PCO2 48 mmHg (35-45); ABG PH 7.381 (7.35-7.450); ABG TOTAL HEMOGLOBIN 12.8 G/dL (12.0-18.0); SITE, BLOOD GAS RT RADIAL; SOURCE, BLOOD GAS ARTERIAL; TEMPERATURE, FAHRENHEIT, BG 97.6 FAHREN (96.0-98.6)
[2020-04-06 15:08] LABS: O2 DEVICE,BLOOD GAS NON REBREATHER (ROOM AIR)
[2020-04-06 15:58] LABS: GLUCOMETER DEV NAME(LOC) 5N.3; GLUCOSE,POINT OF CARE 284 MG/DL (70-110)
[2020-04-06 16:00] VITALS: BP 129/43
[2020-04-06 18:52] LABS: GLUCOMETER DEV NAME(LOC) AHU.; GLUCOSE,POINT OF CARE 125 MG/DL (70-110)
[2020-04-06 20:00] VITALS: BP 124/53
[2020-04-06] MEDS: LORazepam 2 MG/ML VIAL IVP PRN (22:13)
[2020-04-06] MEDS: ZOLPIDEM TARTRATE 5 MG TABLET PO PRN (22:17)
[2020-04-07] VITALS (8 sets, daily range): BP systolic 103–158; BP diastolic 38–49
[2020-04-07] MEDS: INSULIN LISPRO 100 UNITS/ML SQ PRN ×5 (00:36→18:19)
[2020-04-07] MEDS: DEXTROSE 5%-0.45% SODIUM CHL 1,000 ML IV SCH ×2 (02:12→15:30)
[2020-04-07 04:59] LABS: GLUCOMETER DEV NAME(LOC) AHU.; GLUCOSE,POINT OF CARE 255 MG/DL (70-110)
[2020-04-07 04:59] LABS: GLUCOMETER DEV NAME(LOC) AHU.; GLUCOSE,POINT OF CARE 308 MG/DL (70-110)
[2020-04-07 07:06] LABS: BASOPHILS % (AUTO) 0.4 % (0.0-2.0); EOSINOPHILS % (AUTO) 2.2 % (1.0-6.0); HEMATOCRIT 33.3 % (36-46); HEMOGLOBIN 10.9 g/dL (12.0-16.0); LYMPHOCYTES # (AUTO) 1.3 K/uL (1.0-4.8); LYMPHOCYTES % (AUTO) 8.9 % (22.0-44.0); MEAN CORPUSCULAR HEMOGLOBIN 30.4 pg (26.0-34.0); MEAN CORPUSCULAR HGB CONC 32.6 G/dL (31.0-37.0); MEAN CORPUSCULAR VOLUME 93 fL (80-100); MONOCYTES # (AUTO) 0.7 K/uL (0.1-1.0); MONOCYTES % (AUTO) 5.1 % (2.0-9.0); NEUTROPHILS # (AUTO) 12.1 K/uL (1.8-7.7); NEUTROPHILS % (AUTO) 83.4 % (40.0-70.0); PLATELET COUNT (AUTO) 298 K/uL (150-450); RED BLOOD CELL COUNT(AUTO) 3.57 MIL/uL (4.00-5.20); RED CELL DISTRIBUTION WIDTH 14.2 % (11.5-14.5)
[2020-04-07 07:41] LABS: GLUCOMETER DEV NAME(LOC) AHU.; GLUCOSE,POINT OF CARE 256 MG/DL (70-110)
[2020-04-07 07:56] LABS: ALANINE AMINOTRANSFERASE 98 U/L (12-78); ALKALINE PHOSPHATASE 93 U/L (46-116); ANION GAP 5 mmol/L (8-16); ASPARTATE AMINOTRANSFERASE 32 U/L (15-37); BILIRUBIN,TOTAL 0.2 mg/dL (0.1-1.0); C-REACTIVE PROTEIN QUANT 0.73 mg/dL (0.00-0.30); CALCIUM, TOTAL 8.2 mg/dL (8.8-10.5); CARBON DIOXIDE 28 mmol/L (22-29); CHLORIDE 106 mmol/L (98-107); CREATININE 0.96 mg/dL (0.60-1.30); GLOMERULAR FILTR. RATE CALC 57 mL/min (>60); GLUCOSE,RANDOM 211 mg/dL (70-110); POTASSIUM 4.6 mmol/L (3.5-5.1); SODIUM SERUM 139 mmol/L (136-145); TOTAL PROTEIN, SERUM 5.9 g/dL (6.4-8.2); UREA NITROGEN, BLOOD 35 mg/dL (7-18)
[2020-04-07] MEDS: FLUTICASONE PROPIONATE 50 MCG/SPRAY 16 GM NASAL SPRAY NASAL SCH (09:00)
[2020-04-07] MEDS: BENZONATATE 100 MG CAPSULE PO SCH ×3 (09:26→23:56)
[2020-04-07] MEDS: DEXAMETHASONE SOD PHOS 4 MG/ML VIAL IVP SCH (09:26)
[2020-04-07] MEDS: PARoxetine HCL 10 MG TABLET PO SCH (09:27)
[2020-04-07] MEDS: THIAMINE 100 MG TABLET PO SCH (09:27)
[2020-04-07] MEDS: FAMOTIDINE 10 MG/ML 2 ML VIAL IVP SCH (09:32)
[2020-04-07 11:22] LABS: GLUCOMETER DEV NAME(LOC) AHU.; GLUCOSE,POINT OF CARE 127 MG/DL (70-110)
[2020-04-07 11:27] LABS: ABG A-A DIFF O2 605.3 mmHg (10-20.0); ABG BASE EXCESS 1.5 mmol/L (-2.0-3.0); ABG CARBOXYHEMOGLOBIN 0.4 % (0.0-1.5); ABG HCO3 25.5 mmol/L (22.0-26.0); ABG METHEMOGLOBIN 0.3 % (0.0-1.5); ABG OXYGEN CONTENT 15.9 mL/dL (15.0-23.0); ABG OXYGEN SATURATION 93.8 % (95.0-98.0); ABG OXYHEMOGLOBIN 93.1 % (94.0-100.0); ABG PCO2 43 mmHg (35-45); ABG PH 7.406 (7.35-7.450); ABG TOTAL HEMOGLOBIN 12.1 G/dL (12.0-18.0); PO2, ARTERIAL BG 65.1 mmHg (75.0-83.0); SOURCE, BLOOD GAS ARTERIAL; TEMPERATURE, FAHRENHEIT, BG 98.6 FAHREN (96.0-98.6)
[2020-04-07 11:30] LABS: O2 DEVICE,BLOOD GAS NON-REBREATHER (ROOM AIR); SITE, BLOOD GAS RT RADIAL
[2020-04-07] MEDS: LORazepam 2 MG/ML VIAL IVP PRN ×2 (13:23→22:09)
[2020-04-07 13:25] LABS: GLUCOMETER DEV NAME(LOC) AHU.; GLUCOSE,POINT OF CARE 193 MG/DL (70-110)
[2020-04-07 13:38] LABS: D-DIMER 0.7 mg/L FEU (0.00-0.50); PROTHROMBIN TIME 10.8 SEC (9.4-11.6)
[2020-04-07 18:26] LABS: GLUCOMETER DEV NAME(LOC) AHU.; GLUCOSE,POINT OF CARE 241 MG/DL (70-110)
[2020-04-07] MEDS ORDERED: *CLINICAL-PERIPHERAL PARENTERAL NUTRITION DOSING CLINICAL ONE (20:00)
[2020-04-07] MEDS ORDERED: PPN SOLUTION 1 EA in AA 4.25%/CALCIUM/LYTES/D5W 1,000 ML IV SCH (22:00)
[2020-04-07] MEDS ORDERED: DEXTROSE 5%-0.45% SODIUM CHL 1,000 ML IV SCH (22:00)
[2020-04-07] MEDS: ONDANSETRON HCL 4 MG/2 ML VIAL IVP PRN (22:09)
[2020-04-08 04:35] VITALS: BP 158/53
[2020-04-08 05:23] LABS: GLUCOMETER DEV NAME(LOC) AHU.; GLUCOSE,POINT OF CARE 230 MG/DL (70-110)
[2020-04-08] MEDS: INSULIN LISPRO 100 UNITS/ML SQ PRN ×4 (05:24→23:56)
[2020-04-08 06:14] LABS: BASOPHILS % (AUTO) 0.3 % (0.0-2.0); EOSINOPHILS % (AUTO) 2.9 % (1.0-6.0); HEMOGLOBIN 10.7 g/dL (12.0-16.0); LYMPHOCYTES # (AUTO) 1.5 K/uL (1.0-4.8); LYMPHOCYTES % (AUTO) 11.1 % (22.0-44.0); MEAN CORPUSCULAR HEMOGLOBIN 30.3 pg (26.0-34.0); MEAN CORPUSCULAR HGB CONC 32.4 G/dL (31.0-37.0); MEAN CORPUSCULAR VOLUME 94 fL (80-100); MONOCYTES # (AUTO) 0.7 K/uL (0.1-1.0); MONOCYTES % (AUTO) 5.2 % (2.0-9.0); NEUTROPHILS # (AUTO) 10.5 K/uL (1.8-7.7); NEUTROPHILS % (AUTO) 80.5 % (40.0-70.0); PLATELET COUNT (AUTO) 286 K/uL (150-450); RED BLOOD CELL COUNT(AUTO) 3.52 MIL/uL (4.00-5.20); RED CELL DISTRIBUTION WIDTH 14.3 % (11.5-14.5)
[2020-04-08] MEDS: LORazepam 2 MG/ML VIAL IVP PRN (06:17)
[2020-04-08 06:41] LABS: ALANINE AMINOTRANSFERASE 89 U/L (12-78); ALBUMIN 1.9 g/dL (3.4-5.0); ALKALINE PHOSPHATASE 92 U/L (46-116); ANION GAP 5 mmol/L (8-16); ASPARTATE AMINOTRANSFERASE 26 U/L (15-37); BILIRUBIN,TOTAL 0.2 mg/dL (0.1-1.0); CARBON DIOXIDE 27 mmol/L (22-29); CHLORIDE 104 mmol/L (98-107); CREATINE KINASE, TOTAL ONLY 28 U/L (26-192); CREATININE 1.06 mg/dL (0.60-1.30); GLOMERULAR FILTR. RATE CALC 51 mL/min (>60); GLUCOSE,RANDOM 286 mg/dL (70-110); LACTATE DEHYDROGENASE 393 U/L (81-234); PHOSPHORUS 3.2 mg/dL (2.5-4.9); POTASSIUM 5.7 mmol/L (3.5-5.1); SODIUM SERUM 136 mmol/L (136-145); TOTAL PROTEIN, SERUM 5.6 g/dL (6.4-8.2); UREA NITROGEN, BLOOD 34 mg/dL (7-18)
[2020-04-08 08:00] VITALS: BP 152/45
[2020-04-08] MEDS: FLUTICASONE PROPIONATE 50 MCG/SPRAY 16 GM NASAL SPRAY NASAL SCH (09:00)
[2020-04-08] MEDS ORDERED: FUROSEMIDE 20 MG/2 ML VIAL IVP ONE ×2 (09:45→17:45)
[2020-04-08] MEDS: PARoxetine HCL 10 MG TABLET PO SCH (10:00)
[2020-04-08] MEDS: DEXAMETHASONE SOD PHOS 4 MG/ML VIAL IVP SCH (10:00)
[2020-04-08] MEDS ORDERED: SODIUM ZIRCONIUM CYCLOSILICATE 5 GM POWDER PACKET NG ONE (10:00)
[2020-04-08] MEDS: THIAMINE 100 MG TABLET PO SCH (10:01)
[2020-04-08] MEDS: BENZONATATE 100 MG CAPSULE PO SCH ×3 (10:01→23:49)
[2020-04-08 12:00] VITALS: BP 165/58
[2020-04-08] MEDS ORDERED: PPN SOLUTION 1 EA in AA 4.25%/CALCIUM/LYTES/D5W 1,000 ML IV SCH (13:12)
[2020-04-08 14:16] LABS: GLUCOMETER DEV NAME(LOC) AHU.; GLUCOSE,POINT OF CARE 253 MG/DL (70-110)
[2020-04-08 15:17] LABS: ALBUMIN 2.1 g/dL (3.4-5.0); BILIRUBIN,TOTAL 0.3 mg/dL (0.1-1.0); CALCIUM, TOTAL 8.2 mg/dL (8.8-10.5); CREATININE 1.07 mg/dL (0.60-1.30); POTASSIUM 5.4 mmol/L (3.5-5.1); TOTAL PROTEIN, SERUM 6.1 g/dL (6.4-8.2)
[2020-04-08 16:00] VITALS: BP 157/45
[2020-04-08] MEDS: ACETAMINOPHEN 325 MG TABLET PO PRN (16:52)
[2020-04-08 18:25] LABS: GLUCOMETER DEV NAME(LOC) AHU.; GLUCOSE,POINT OF CARE 239 MG/DL (70-110)
[2020-04-08 20:00] VITALS: BP 136/41
[2020-04-08] MEDS ORDERED: SODIUM CHLORIDE IV SCH ×6 (22:00)
[2020-04-08] MEDS ORDERED: SODIUM PHOS M BASIC D BASIC IV SCH ×6 (22:00)
[2020-04-08] MEDS ORDERED: [UNRECOGNIZED DRUG - OTHER] IV SCH ×6 (22:00)
[2020-04-08] MEDS ORDERED: PPN IV SCH ×6 (22:00)
[2020-04-08 22:06] LABS: ALBUMIN 2.2 g/dL (3.4-5.0); BILIRUBIN,TOTAL 0.3 mg/dL (0.1-1.0); CALCIUM, TOTAL 8.6 mg/dL (8.8-10.5); CREATININE 1.16 mg/dL (0.60-1.30); POTASSIUM 5.2 mmol/L (3.5-5.1); TOTAL PROTEIN, SERUM 6.3 g/dL (6.4-8.2)
[2020-04-09] VITALS (7 sets, daily range): BP systolic 122–155; BP diastolic 56–77
[2020-04-09 07:20] LABS: BASOPHILS % (AUTO) 0.4 % (0.0-2.0); EOSINOPHILS % (AUTO) 0.9 % (1.0-6.0); HEMATOCRIT 36.3 % (36-46); HEMOGLOBIN 11.6 g/dL (12.0-16.0); LYMPHOCYTES # (AUTO) 1.5 K/uL (1.0-4.8); MEAN CORPUSCULAR HEMOGLOBIN 29.9 pg (26.0-34.0); MEAN CORPUSCULAR HGB CONC 31.9 G/dL (31.0-37.0); MEAN CORPUSCULAR VOLUME 94 fL (80-100); MONOCYTES # (AUTO) 0.7 K/uL (0.1-1.0); MONOCYTES % (AUTO) 5.5 % (2.0-9.0); NEUTROPHILS # (AUTO) 9.9 K/uL (1.8-7.7); NEUTROPHILS % (AUTO) 81.2 % (40.0-70.0); PLATELET COUNT (AUTO) 331 K/uL (150-450); RED BLOOD CELL COUNT(AUTO) 3.88 MIL/uL (4.00-5.20); RED CELL DISTRIBUTION WIDTH 14.7 % (11.5-14.5)
[2020-04-09 07:43] LABS: ALBUMIN 2.2 g/dL (3.4-5.0); BILIRUBIN,TOTAL 0.2 mg/dL (0.1-1.0); CALCIUM, TOTAL 8.7 mg/dL (8.8-10.5); MAGNESIUM 2.4 mg/dL (1.80-2.40); PHOSPHORUS 3.6 mg/dL (2.5-4.9); POTASSIUM 4.9 mmol/L (3.5-5.1); TOTAL PROTEIN, SERUM 6.1 g/dL (6.4-8.2)
[2020-04-09 08:02] LABS: CREATININE 1.15 mg/dL (0.60-1.30)
[2020-04-09] MEDS: DEXAMETHASONE SOD PHOS 4 MG/ML VIAL IVP SCH (11:30)
[2020-04-09] MEDS: PARoxetine HCL 10 MG TABLET PO SCH (11:30)
[2020-04-09] MEDS: THIAMINE 100 MG TABLET PO SCH (11:30)
[2020-04-09] MEDS: BENZONATATE 100 MG CAPSULE PO SCH ×3 (11:30→23:58)
[2020-04-09] MEDS: INSULIN LISPRO 100 UNITS/ML SQ PRN ×3 (12:53→22:10)
[2020-04-09] MEDS: ACETAMINOPHEN 325 MG TABLET PO PRN ×2 (13:01→17:52)
[2020-04-09] MEDS: FLUTICASONE PROPIONATE 50 MCG/SPRAY 16 GM NASAL SPRAY NASAL SCH (17:52)
[2020-04-09] MEDS ORDERED: SODIUM PHOS M BASIC D BASIC IV SCH ×6 (22:00)
[2020-04-09] MEDS ORDERED: PPN IV SCH ×6 (22:00)
[2020-04-09] MEDS ORDERED: SODIUM CHLORIDE IV SCH ×6 (22:00)
[2020-04-09] MEDS ORDERED: [UNRECOGNIZED DRUG - OTHER] IV SCH ×6 (22:00)
[2020-04-09 23:33] LABS: GLUCOMETER DEV NAME(LOC) 5N.3; GLUCOSE,POINT OF CARE 321 MG/DL (70-110)
[2020-04-09 23:33] LABS: GLUCOMETER DEV NAME(LOC) 5N.3; GLUCOSE,POINT OF CARE 301 MG/DL (70-110)
[2020-04-09 23:33] LABS: GLUCOMETER DEV NAME(LOC) 5N.3; GLUCOSE,POINT OF CARE 195 MG/DL (70-110)
[2020-04-09 23:33] LABS: GLUCOMETER DEV NAME(LOC) 5N.1B; GLUCOSE,POINT OF CARE 195 MG/DL (70-110)
[2020-04-09] MEDS: ZOLPIDEM TARTRATE 5 MG TABLET PO PRN (23:58)
[2020-04-10] MEDS: ACETAMINOPHEN 325 MG TABLET PO PRN ×2 (00:37→06:48)
[2020-04-10 00:46] VITALS: BP 120/64
[2020-04-10 04:32] VITALS: BP 153/65
[2020-04-10] MEDS: INSULIN LISPRO 100 UNITS/ML SQ PRN ×3 (06:00→18:38)
[2020-04-10 07:08] VITALS: BP 104/53
[2020-04-10] MEDS: FLUTICASONE PROPIONATE 50 MCG/SPRAY 16 GM NASAL SPRAY NASAL SCH (09:00)
[2020-04-10] MEDS: DOCUSATE SODIUM 100 MG/10 ML LIQUID UDCUP PO PRN (09:28)
[2020-04-10] MEDS: DEXAMETHASONE SOD PHOS 4 MG/ML VIAL IVP SCH (09:29)
[2020-04-10] MEDS: PARoxetine HCL 10 MG TABLET PO SCH (09:29)
[2020-04-10] MEDS: FAMOTIDINE 10 MG/ML 2 ML VIAL IVP SCH (09:29)
[2020-04-10] MEDS: BENZONATATE 100 MG CAPSULE PO SCH ×3 (09:29→16:13)
[2020-04-10] MEDS: THIAMINE 100 MG TABLET PO SCH (09:29)
[2020-04-10 10:39] VITALS: BP 126/64
[2020-04-10 11:04] LABS: BASOPHILS % (AUTO) 0.8 % (0.0-2.0); EOSINOPHILS % (AUTO) 0.7 % (1.0-6.0); HEMOGLOBIN 11.2 g/dL (12.0-16.0); LYMPHOCYTES # (AUTO) 1.6 K/uL (1.0-4.8); LYMPHOCYTES % (AUTO) 11.3 % (22.0-44.0); MEAN CORPUSCULAR HEMOGLOBIN 29.6 pg (26.0-34.0); MEAN CORPUSCULAR VOLUME 93 fL (80-100); MONOCYTES # (AUTO) 0.8 K/uL (0.1-1.0); MONOCYTES % (AUTO) 5.4 % (2.0-9.0); NEUTROPHILS # (AUTO) 11.8 K/uL (1.8-7.7); NEUTROPHILS % (AUTO) 81.8 % (40.0-70.0); PLATELET COUNT (AUTO) 369 K/uL (150-450); RED BLOOD CELL COUNT(AUTO) 3.78 MIL/uL (4.00-5.20); RED CELL DISTRIBUTION WIDTH 14.7 % (11.5-14.5)
[2020-04-10] MEDS: MAGNESIUM HYDROXIDE SUSPENSION 30 ML UDCUP PO PRN (11:07)
[2020-04-10 11:36] LABS: ALBUMIN 2.3 g/dL (3.4-5.0); BILIRUBIN,TOTAL 0.3 mg/dL (0.1-1.0); C-REACTIVE PROTEIN QUANT 0.17 mg/dL (0.00-0.30); CALCIUM, TOTAL 8.5 mg/dL (8.8-10.5); CREATININE 1.08 mg/dL (0.60-1.30); MAGNESIUM 2.1 mg/dL (1.80-2.40); POTASSIUM 4.2 mmol/L (3.5-5.1); TOTAL PROTEIN, SERUM 6.1 g/dL (6.4-8.2)
[2020-04-10] MEDS ORDERED: DEXA41I IVP (14:15)
[2020-04-10] MEDS ORDERED: FAMO20 IVP (14:16)
[2020-04-10] MEDS ORDERED: FLUT16H NASAL (14:17)
[2020-04-10] MEDS ORDERED: PARO10TA89 PO (14:18)
[2020-04-10] MEDS ORDERED: THIA100T80 PO (14:19)
[2020-04-10] MEDS ORDERED: ACET-3207 PO (14:21)
[2020-04-10] MEDS ORDERED: DOCU-275 PO (14:23)
[2020-04-10] MEDS ORDERED: INSU100V SQ (14:24)
[2020-04-10] MEDS ORDERED: LORA2I IVP (14:26)
[2020-04-10] MEDS ORDERED: MOM30 PO (14:26)
[2020-04-10] MEDS ORDERED: ONDA-104 IVP (14:28)
[2020-04-10] MEDS ORDERED: ZOLP-280 PO (14:29)
[2020-04-10 14:58] VITALS: BP 135/90
[2020-04-10] MEDS ORDERED: ENOXAPARIN SODIUM 30 MG/0.3 ML PF SYRINGE SQ SCH (21:00)
[2020-04-10] MEDS ORDERED: PPN IV SCH ×7 (22:00)
[2020-04-10] MEDS ORDERED: SODIUM PHOS M BASIC D BASIC IV SCH ×7 (22:00)
[2020-04-10] MEDS ORDERED: SODIUM CHLORIDE IV SCH ×7 (22:00)
[2020-04-10] MEDS ORDERED: [UNRECOGNIZED DRUG - OTHER] IV SCH ×7 (22:00)
[2020-04-11 02:00] LABS: GLUCOMETER DEV NAME(LOC) 5N.1B; GLUCOSE,POINT OF CARE 184 MG/DL (70-110)
[2020-04-12 23:21] LABS: GLUCOMETER DEV NAME(LOC) 5N.3; GLUCOSE,POINT OF CARE 361 MG/DL (70-110)
== END 2020-04-10 18:55 | DRG 137 ==
LOC: EMS 02:23 → 5N 06:13 → ICUN 04-03 18:54 → 5N 04-09 01:30
PROVIDERS: ADMIT Hospitalist; ATTEND Hospitalist
PROC: XW033E5 Introduction of Remdesivir Anti-infective into Peripheral Vein, Percutaneous Approach, New Technology Group 5 (ICD-10-PCS; 2020-03-15)
PROC: XW13325 Transfusion of Convalescent Plasma (Nonautologous) into Peripheral Vein, Percutaneous Approach, New Technology Group 5 (ICD-10-PCS; 2020-03-17)
PROC: 5A1935Z Respiratory Ventilation, Less than 24 Consecutive Hours (ICD-10-PCS; principal; 2020-04-04)
PROC: 0BH17EZ Insertion of Endotracheal Airway into Trachea, Via Natural or Artificial Opening (ICD-10-PCS; 2020-04-04)
DX: U07.1 COVID-19 (principal); J12.82 Pneumonia due to coronavirus disease 2019; R65.11 Systemic inflammatory response syndrome (SIRS) of non-infectious origin with acute organ dysfunction; E43 Unspecified severe protein-calorie malnutrition; J80 Acute respiratory distress syndrome; D72.810 Lymphocytopenia; E66.9 Obesity, unspecified; D68.59 Other primary thrombophilia; E78.00 Pure hypercholesterolemia, unspecified; Z68.29 Body mass index [BMI] 29.0-29.9, adult; I10 Essential (primary) hypertension; R79.89 Other specified abnormal findings of blood chemistry; Z82.49 Family history of ischemic heart disease and other diseases of the circulatory system; E87.5 Hyperkalemia; E11.65 Type 2 diabetes mellitus with hyperglycemia; E78.5 Hyperlipidemia, unspecified; J98.2 Interstitial emphysema
CPT/HCPCS: 36245; 36600; 71250; 82728; 82805; 83605; 83615; 83735; 84100; 84132; 84145; 85379; 85384; 85651; 86140; 86900; 86901; 86927; 87040; 93005; 94660; 99173; 99242; A9575; G0378; J0456; J0610; J0696; J1100; J1815; J1940; J2001; J2060; J2405; J3475; J3480; J3490; J7030; J7040; J7050; J7060; J7070; J7131; J8540; 36415-L1; 36415-TC; 71045-TC; U0003; X7700